=== PATIENT | female | born 1950 ===

== ENCOUNTER 2020-03-06 10:20 | Inpatient (IN) | payer OTHER ==
[2020-03-06 11:22] LABS: BASO % 0.1 % (0-2.0); EOS % 0.1 % (0-4.5); HEMATOCRIT 34.7 % (32.4-45.2); HEMOGLOBIN 10.7 GM/dL (10.7-15.3); LYMPH % 10.7 % (8-40); MCH 29.8 pg (25.7-33.7); MCHC 30.8 g/dl (32.0-36.0); MEAN CELL VOLUME 96.9 fl (80-96); MEAN PLT VOLUME 9.1 fl (7.5-11.1); MONO % 11.9 % (3.8-10.2); NEUT % 77.2 % (42.8-82.8); PLATELET COUNT 311 K/MM3 (134-434); RBC 3.58 M/mm3 (3.60-5.2); RDW 14.4 % (11.6-15.6); WHITE BLOOD COUNT 13.2 K/mm3 (4.0-10.0)
[2020-03-06 11:29] LABS: INR 1.02 (0.83-1.09); PROTHROMBIN TIME (PATIENT) 12.3 SEC (9.7-13.0)
[2020-03-06 11:43] LABS: CHLORIDE 93 mmol/L (98-107); POTASSIUM 4.8 mmol/L (3.5-5.1); SODIUM 140 mmol/L (136-145)
[2020-03-06 11:45] LABS: ALBUMIN 3.2 g/dl (3.4-5.0); CALCIUM 10.3 mg/dL (8.5-10.1); GLUCOSE,RANDOM 119 mg/dL (74-106)
[2020-03-06 11:48] LABS: CREATININE 0.6 mg/dL (0.55-1.3); SGOT/AST 28 U/L (15-37); SGPT/ALT 27 U/L (13-61)
[2020-03-06 11:50] LABS: BILIRUBIN,TOTAL 0.2 mg/dL (0.2-1); TOT PROT 8.5 g/dl (6.4-8.2)
[2020-03-06 11:51] LABS: ALK PHOS 154 U/L (45-117)
[2020-03-06 11:53] LABS: ANION GAP 2 MMOL/L (8-16); CO2 > 45 mmol/L (21-32)
[2020-03-06] MEDS ORDERED: CEFTRIAXONE 1 GM in DEXTROSE 5%-WATER - 100 ML IVPB ONE (15:55)
[2020-03-06] MEDS ORDERED: CEFTRIAXONE 1 GM/50 ML BAG ONE (16:06)
[2020-03-06] MEDS: D5-NS + 20 MEQ KCL - 20 MEQ/1,000 ML INFUS.BAG IV SCH (19:23)
[2020-03-06] MEDS: AMINO ACIDS/PROTEIN HYDROLYS 30 ML LIQUID.PKT PO SCH (19:24)
[2020-03-06] MEDS ORDERED: clonazePAM 0.25 MG ODT TABLETS GT ONE (22:10)
[2020-03-06] MEDS ORDERED: clonazePAM 0.5 MG TABLET ONE (22:13)
[2020-03-06] MEDS: ATORVASTATIN CA 40 MG TABLET (FP) GT SCH (22:13)
[2020-03-06] MEDS ORDERED: ATORVASTATIN CA 40 MG TABLET (FP) ONE (22:13)
[2020-03-06] MEDS: APIXABAN 5 MG TABLET GT SCH (22:13)
[2020-03-06] MEDS ORDERED: APIXABAN 5 MG TABLET ONE (22:13)
[2020-03-07 07:28] LABS: BASO % 0.4 % (0-2.0); EOS % 0.2 % (0-4.5); HEMATOCRIT 26.1 % (32.4-45.2); HEMOGLOBIN 8.1 GM/dL (10.7-15.3); LYMPH % 11.9 % (8-40); MCH 29.3 pg (25.7-33.7); MCHC 30.9 g/dl (32.0-36.0); MEAN PLT VOLUME 9.6 fl (7.5-11.1); MONO % 13.2 % (3.8-10.2); NEUT % 74.3 % (42.8-82.8); PLATELET COUNT 258 K/MM3 (134-434); RBC 2.75 M/mm3 (3.60-5.2); RDW 14.6 % (11.6-15.6); WHITE BLOOD COUNT 12.7 K/mm3 (4.0-10.0)
[2020-03-07 07:41] LABS: POTASSIUM 4.8 mmol/L (3.5-5.1)
[2020-03-07 07:45] LABS: CALCIUM 10.2 mg/dL (8.5-10.1)
[2020-03-07 07:46] LABS: ALBUMIN 2.8 g/dl (3.4-5.0); BLOOD UREA NITROGEN 42.2 mg/dL (7-18)
[2020-03-07 07:51] LABS: BILIRUBIN,TOTAL 0.4 mg/dL (0.2-1); TOT PROT 7.6 g/dl (6.4-8.2)
[2020-03-07] MEDS ORDERED: ISOSORBIDE MONONITRATE 10 MG TABLET PO SCH (10:00)
[2020-03-07] MEDS: CEFTRIAXONE 1 GM in DEXTROSE 5%-WATER - 50 ML IVPB SCH (12:16)
[2020-03-07] MEDS: LEVOTHYROXINE NA 112 MCG TABLET (FP) PEG SCH (12:16)
[2020-03-07] MEDS: FERROUS SO4 300 MG/5 ML ORAL SOLN UNIT DOSE CUPS GT SCH (12:17)
[2020-03-07] MEDS: APIXABAN 5 MG TABLET GT SCH ×2 (12:17→21:35)
[2020-03-07] MEDS: MULTIVIT-MINERALS ORAL LIQUID PO SCH (12:17)
[2020-03-07] MEDS: ASPIRIN 81 MG CHEWABLE TABLETS GT SCH (12:18)
[2020-03-07] MEDS: FAMOTIDINE 40 MG/5 ML ORAL SUSPENSION PEG SCH (12:18)
[2020-03-07] MEDS: AMINO ACIDS/PROTEIN HYDROLYS 30 ML LIQUID.PKT PO SCH ×2 (12:18→18:29)
[2020-03-07] MEDS ORDERED: APIXABAN 5 MG TABLET ONE (12:19)
[2020-03-07] MEDS ORDERED: CEFTRIAXONE 1 GM/50 ML BAG ONE (12:20)
[2020-03-07] MEDS: POLYETHYLENE GLYCOL 3350 119 GM BTL GT SCH (12:21)
[2020-03-07 12:49] LABS: HEMATOCRIT 24.9 % (32.4-45.2); HEMOGLOBIN 7.9 GM/dL (10.7-15.3); MCH 29.7 pg (25.7-33.7); MCHC 31.9 g/dl (32.0-36.0); MEAN CELL VOLUME 93.3 fl (80-96); MEAN PLT VOLUME 8.6 fl (7.5-11.1); PLATELET COUNT 250 K/MM3 (134-434); RBC 2.67 M/mm3 (3.60-5.2); RDW 14.3 % (11.6-15.6); WHITE BLOOD COUNT 11.7 K/mm3 (4.0-10.0)
[2020-03-07] MEDS: SILVER SULFADIAZINE 1% TOP CREAM 50 GM JAR TP SCH (13:09)
[2020-03-07 17:12] LABS: EPI CELLS >36 /uL (0-25.1); HYALINE CASTS 48 /uL (0-3.1); PH,URINE 8.5 (5.0-8.0); URINE APPEARANCE TURBID; URINE BACTERIA 7249 /uL (0-1359); URINE BILIRUBIN NEGATIVE (NEGATIVE); URINE COLOR YELLOW; URINE GLUCOSE (UA) NEGATIVE (NEGATIVE); URINE KETONE NEGATIVE (NEGATIVE); URINE LEUK ESTERASE 1+ (NEGATIVE); URINE NITRITE NEGATIVE (NEGATIVE); URINE PROTEIN 1+ (NEGATIVE); URINE RBC 23 /uL (0-23.9); URINE UROBILINOGEN 0.2 mg/dL (0.2-1.0); URINE WBC 379 /uL (0-25.8)
[2020-03-07 18:09] LABS: HEMATOCRIT 26.4 % (32.4-45.2); HEMOGLOBIN 8.6 GM/dL (10.7-15.3); MCH 30.8 pg (25.7-33.7); MCHC 32.5 g/dl (32.0-36.0); MEAN CELL VOLUME 94.6 fl (80-96); MEAN PLT VOLUME 9.4 fl (7.5-11.1); PLATELET COUNT 252 K/MM3 (134-434); RBC 2.79 M/mm3 (3.60-5.2); RDW 14.6 % (11.6-15.6)
[2020-03-07] MEDS: D5-NS + 20 MEQ KCL - 20 MEQ/1,000 ML INFUS.BAG IV SCH (18:30)
[2020-03-07] MEDS: ATORVASTATIN CA 40 MG TABLET (FP) GT SCH (21:35)
[2020-03-08] MEDS ORDERED: PT OWN MED DRAWER 7, Y5N ONE ×2 (05:56→21:39)
[2020-03-08] MEDS: LEVOTHYROXINE NA 112 MCG TABLET (FP) PEG SCH ×2 (06:05→06:10)
[2020-03-08] MEDS: AMINO ACIDS/PROTEIN HYDROLYS 30 ML LIQUID.PKT PO SCH ×2 (08:28→17:21)
[2020-03-08] MEDS: ISOSORBIDE DINITRATE 5 MG TABLET PO SCH ×2 (08:28→12:02)
[2020-03-08 08:39] LABS: BASO % 0.7 % (0-2.0); EOS % 1.3 % (0-4.5); HEMATOCRIT 24.8 % (32.4-45.2); HEMOGLOBIN 8.1 GM/dL (10.7-15.3); MCH 30.9 pg (25.7-33.7); MCHC 32.7 g/dl (32.0-36.0); MEAN CELL VOLUME 94.6 fl (80-96); MEAN PLT VOLUME 9.4 fl (7.5-11.1); MONO % 15.1 % (3.8-10.2); NEUT % 69.9 % (42.8-82.8); PLATELET COUNT 243 K/MM3 (134-434); RBC 2.62 M/mm3 (3.60-5.2); RDW 14.7 % (11.6-15.6); WHITE BLOOD COUNT 9.4 K/mm3 (4.0-10.0)
[2020-03-08 08:43] LABS: POTASSIUM 3.7 mmol/L (3.5-5.1)
[2020-03-08 08:55] LABS: ALBUMIN 2.7 g/dl (3.4-5.0); BLOOD UREA NITROGEN 38.9 mg/dL (7-18)
[2020-03-08 08:57] LABS: CREATININE 0.7 mg/dL (0.55-1.3)
[2020-03-08 08:58] LABS: BILIRUBIN,TOTAL 0.4 mg/dL (0.2-1)
[2020-03-08 08:59] LABS: TOT PROT 7.4 g/dl (6.4-8.2)
[2020-03-08] MEDS ORDERED: cefTRIAXone SODIUM 1 GM VIAL ONE (09:33)
[2020-03-08] MEDS ORDERED: DEXTROSE 5%-WATER - 50 ML IVPB ONE (09:33)
[2020-03-08] MEDS: FERROUS SO4 300 MG/5 ML ORAL SOLN UNIT DOSE CUPS GT SCH (09:41)
[2020-03-08] MEDS: APIXABAN 5 MG TABLET GT SCH ×2 (09:41→21:48)
[2020-03-08] MEDS: CEFTRIAXONE 1 GM in DEXTROSE 5%-WATER - 50 ML IVPB SCH (09:41)
[2020-03-08] MEDS: ASPIRIN 81 MG CHEWABLE TABLETS GT SCH (09:41)
[2020-03-08] MEDS: FAMOTIDINE 40 MG/5 ML ORAL SUSPENSION PEG SCH (09:42)
[2020-03-08] MEDS: MULTIVIT-MINERALS ORAL LIQUID PO SCH (09:42)
[2020-03-08] MEDS: D5-NS + 20 MEQ KCL - 20 MEQ/1,000 ML INFUS.BAG IV SCH ×2 (10:17→17:21)
[2020-03-08] MEDS ORDERED: ALBUTEROL SO4 2.5/IPRATROPIUM 0.5 INH SOL 3 ML VIAL.NEB. NEB ONE (11:49)
[2020-03-08] MEDS: ACETAMINOPHEN 650 MG/20.3 ML ORAL SOLUTION (CUPS) PO PRN (12:02)
[2020-03-08] MEDS: POLYETHYLENE GLYCOL 3350 119 GM BTL GT SCH ×2 (12:02→17:21)
[2020-03-08] MEDS: LACTOBACILLUS ACIDOPHILUS 1 TABLET GT SCH (12:16)
[2020-03-08] MEDS: clonazePAM 0.25 MG ODT TABLETS GT SCH ×2 (13:30→21:47)
[2020-03-08] MEDS ORDERED: clonazePAM 0.25 MG ODT TABLETS GT SCH (13:30)
[2020-03-08] MEDS: ASCORBIC ACID 500 MG/5 ML UNIT DOSE CUP GT SCH ×2 (13:30→21:48)
[2020-03-08] MEDS: ESCITALOPRAM OXALATE 5 MG/5 ML GT SCH (13:31)
[2020-03-08 14:27] VITALS: BMI 17.7
[2020-03-08] MEDS: SILVER SULFADIAZINE 1% TOP CREAM 50 GM JAR TP SCH (15:32)
[2020-03-08] MEDS: ALBUTEROL SO4 2.5/IPRATROPIUM 0.5 INH SOL 3 ML VIAL.NEB. NEB SCH ×2 (16:05→20:45)
[2020-03-08] MEDS: ATORVASTATIN CA 40 MG TABLET (FP) GT SCH (21:48)
[2020-03-09] MEDS: LEVOTHYROXINE NA 112 MCG TABLET (FP) PEG SCH (06:31)
[2020-03-09] MEDS: D5-NS + 20 MEQ KCL - 20 MEQ/1,000 ML INFUS.BAG IV SCH (06:33)
[2020-03-09] MEDS: ALBUTEROL SO4 2.5/IPRATROPIUM 0.5 INH SOL 3 ML VIAL.NEB. NEB SCH ×3 (07:02→15:03)
[2020-03-09 08:23] LABS: BASO % 0.4 % (0-2.0); EOS % 3.8 % (0-4.5); HEMATOCRIT 24.3 % (32.4-45.2); HEMOGLOBIN 7.6 GM/dL (10.7-15.3); LYMPH % 12.6 % (8-40); MCH 29.8 pg (25.7-33.7); MCHC 31.3 g/dl (32.0-36.0); MEAN PLT VOLUME 9.4 fl (7.5-11.1); MONO % 17.1 % (3.8-10.2); NEUT % 66.1 % (42.8-82.8); PLATELET COUNT 226 K/MM3 (134-434); RBC 2.56 M/mm3 (3.60-5.2); RDW 14.6 % (11.6-15.6); WHITE BLOOD COUNT 8.2 K/mm3 (4.0-10.0)
[2020-03-09 08:47] LABS: POTASSIUM 4.1 mmol/L (3.5-5.1)
[2020-03-09 08:51] LABS: ALBUMIN 2.4 g/dl (3.4-5.0); CALCIUM 9.2 mg/dL (8.5-10.1)
[2020-03-09 08:54] LABS: CREATININE 0.4 mg/dL (0.55-1.3)
[2020-03-09 08:56] LABS: BILIRUBIN,TOTAL 0.5 mg/dL (0.2-1); TOT PROT 6.6 g/dl (6.4-8.2)
[2020-03-09] MEDS ORDERED: cefTRIAXone SODIUM 1 GM VIAL ONE (10:10)
[2020-03-09] MEDS ORDERED: DEXTROSE 5%-WATER - 50 ML IVPB ONE (10:10)
[2020-03-09] MEDS: APIXABAN 5 MG TABLET GT SCH (10:24)
[2020-03-09] MEDS: LACTOBACILLUS ACIDOPHILUS 1 TABLET GT SCH (10:24)
[2020-03-09] MEDS: ASPIRIN 81 MG CHEWABLE TABLETS GT SCH (10:24)
[2020-03-09] MEDS: FERROUS SO4 300 MG/5 ML ORAL SOLN UNIT DOSE CUPS GT SCH (10:24)
[2020-03-09] MEDS: MULTIVIT-MINERALS ORAL LIQUID PO SCH (10:24)
[2020-03-09] MEDS: ISOSORBIDE DINITRATE 5 MG TABLET PO SCH ×2 (10:24→12:06)
[2020-03-09] MEDS: clonazePAM 0.25 MG ODT TABLETS GT SCH (10:24)
[2020-03-09] MEDS: FAMOTIDINE 40 MG/5 ML ORAL SUSPENSION PEG SCH (10:25)
[2020-03-09] MEDS: ASCORBIC ACID 500 MG/5 ML UNIT DOSE CUP GT SCH (10:25)
[2020-03-09] MEDS: CEFTRIAXONE 1 GM in DEXTROSE 5%-WATER - 50 ML IVPB SCH (10:25)
[2020-03-09] MEDS: POLYETHYLENE GLYCOL 3350 119 GM BTL GT SCH (10:25)
[2020-03-09] MEDS: SILVER SULFADIAZINE 1% TOP CREAM 50 GM JAR TP SCH (10:25)
[2020-03-09] MEDS ORDERED: PT OWN MED DRAWER 7, Y5N ONE (10:59)
[2020-03-09] MEDS ORDERED: FERRIC CARBOXYMALTOSE 750 MG in SODIUM CHLORIDE 250 ML IVPB ONE (11:00)
[2020-03-09] MEDS: ESCITALOPRAM OXALATE 5 MG/5 ML GT SCH (11:53)
[2020-03-09] MEDS: ACETAMINOPHEN 650 MG/20.3 ML ORAL SOLUTION (CUPS) PO PRN (12:06)
[2020-03-09 18:14] VITALS: BP 108/47; PULSE 81; TEMP 98.3
== END 2020-03-09 18:21 | DRG 208 ==
LOC: JER 10:20 → JERBED 15:48 → J5S 03-07 18:02
PROVIDERS: ADMIT Family Medicine; ATTEND Family Medicine
PROC: 5A1945Z Respiratory Ventilation, 24-96 Consecutive Hours (ICD-10-PCS; principal; 2020-03-06)
DX: J18.9 Pneumonia, unspecified organism (principal); G93.41 Metabolic encephalopathy; J96.01 Acute respiratory failure with hypoxia; A41.89 Other specified sepsis; R64 Cachexia; Z68.1 Body mass index [BMI] 19.9 or less, adult; E46 Unspecified protein-calorie malnutrition; J44.9 Chronic obstructive pulmonary disease, unspecified; E78.5 Hyperlipidemia, unspecified; E03.9 Hypothyroidism, unspecified; I48.91 Unspecified atrial fibrillation; I27.20 Pulmonary hypertension, unspecified; I25.10 Atherosclerotic heart disease of native coronary artery without angina pectoris; K59.00 Constipation, unspecified; D50.9 Iron deficiency anemia, unspecified; I11.0 Hypertensive heart disease with heart failure; R41.82 Altered mental status, unspecified; I50.9 Heart failure, unspecified; I77.811 Abdominal aortic ectasia; D64.9 Anemia, unspecified; N20.0 Calculus of kidney; K80.20 Calculus of gallbladder without cholecystitis without obstruction; Z86.718 Personal history of other venous thrombosis and embolism; Z99.81 Dependence on supplemental oxygen; Z88.0 Allergy status to penicillin; R77.8 Other specified abnormalities of plasma proteins; Z93.1 Gastrostomy status; Z93.0 Tracheostomy status
CPT/HCPCS: 36415; 70450-TC; 71045-TC-FY; 71250-TC; 80053; 81003; 82728; 83540; 83550; 83605; 84484; 85025; 85027; 85610; 85730; 87040; 87086; 87186; 87899; 93005; 93010; 94002; 94640; 97161-GP; 99285-25; C9803; J1439; U0003

== ENCOUNTER 2020-03-22 15:41 | Inpatient (IN) | payer OTHER ==
[2020-03-22] MEDS ORDERED: SODIUM CHLORIDE 0.9% 500 ML INFUS.BAG IV ONE (16:17)
[2020-03-22] MEDS ORDERED: PANTOPRAZOLE SODIUM 40 MG VIAL IVPUSH ONE (16:18)
[2020-03-22] MEDS ORDERED: ACETAMINOPHEN 1000 MG/100 ML VIAL (NON FORMULARY) IVPB ONE (16:31)
[2020-03-22] MEDS ORDERED: ONDANSETRON 4 MG/2 ML VIAL IVPUSH ONE (16:33)
[2020-03-22] MEDS ORDERED: ACETAMINOPHEN INJECTION 100 ML IVPB ONE (16:39)
[2020-03-22] MEDS ORDERED: PANTOPRAZOLE SODIUM 40 MG VIAL ONE (16:40)
[2020-03-22] MEDS ORDERED: CEFEPIME HCL/D5W 2 GM/50 ML BAG IVPB ONE (16:56)
[2020-03-22 17:37] LABS: BASO % 0.2 % (0-2.0); HEMATOCRIT 20.2 % (32.4-45.2); LYMPH % 3.1 % (8-40); MCH 30.2 pg (25.7-33.7); MCHC 30.7 g/dl (32.0-36.0); MEAN CELL VOLUME 98.4 fl (80-96); MEAN PLT VOLUME 8.9 fl (7.5-11.1); MONO % 11.6 % (3.8-10.2); NEUT % 85.1 % (42.8-82.8); PLATELET COUNT 246 K/MM3 (134-434); RBC 2.05 M/mm3 (3.60-5.2); RDW 15.4 % (11.6-15.6); WHITE BLOOD COUNT 24.2 K/mm3 (4.0-10.0)
[2020-03-22 17:44] LABS: INR 1.84 (0.83-1.09); PROTHROMBIN TIME (PATIENT) 21.9 SEC (9.7-13.0)
[2020-03-22 17:45] LABS: HEMOGLOBIN 6.2 GM/dL (10.7-15.3)
[2020-03-22 17:47] LABS: ACTIVATED PTT 33.6 SECONDS (25.2-36.5)
[2020-03-22 18:02] LABS: POTASSIUM 5.3 mmol/L (3.5-5.1)
[2020-03-22 18:05] LABS: CALCIUM 9.1 mg/dL (8.5-10.1)
[2020-03-22 18:06] LABS: ALBUMIN 2.4 g/dl (3.4-5.0)
[2020-03-22 18:08] LABS: CREATININE 0.6 mg/dL (0.55-1.3)
[2020-03-22 18:10] LABS: BILIRUBIN,TOTAL 0.2 mg/dL (0.2-1); TOT PROT 6.9 g/dl (6.4-8.2)
[2020-03-22 18:12] LABS: BLOOD UREA NITROGEN 68.6 mg/dL (7-18)
[2020-03-22] MEDS ORDERED: CEFEPIME 2 GM/100 ML BAG IVPB ONE (18:18)
[2020-03-22 18:33] LABS: EPI CELLS 34 /uL (0-25.1); HYALINE CASTS 11 /uL (0-3.1); URINE APPEARANCE CLOUDY; URINE BACTERIA 32 /uL (0-1359); URINE BILIRUBIN NEGATIVE (NEGATIVE); URINE COLOR YELLOW; URINE GLUCOSE (UA) NEGATIVE (NEGATIVE); URINE KETONE NEGATIVE (NEGATIVE); URINE LEUK ESTERASE TRACE (NEGATIVE); URINE NITRITE NEGATIVE (NEGATIVE); URINE PROTEIN 1+ (NEGATIVE); URINE RBC 234 /uL (0-23.9); URINE UROBILINOGEN 0.2 mg/dL (0.2-1.0); URINE WBC 32 /uL (0-25.8)
[2020-03-22 19:23] LABS: ANISOCYTOSIS 1+; MACROCYTOSIS 1+; PLATELET ESTIMATE NORMAL
[2020-03-22] MEDS ORDERED: SODIUM CHLORIDE FOR INHALATION 3 ML VIAL.NEB IH ONE (23:44)
[2020-03-22] MEDS ORDERED: ALBUTEROL SO4 2.5/IPRATROPIUM 0.5 INH SOL 3 ML VIAL.NEB. NEB STA (23:46)
[2020-03-23] MEDS ORDERED: CEFEPIME HCL/D5W 1 GM/50 ML BAG IVPB SCH (06:00)
[2020-03-23] MEDS ORDERED: CEFEPIME 1 GM/100 ML BAG IVPB ONE ×2 (06:04→18:09)
[2020-03-23 07:05] LABS: BASO % 0.2 % (0-2.0); HEMATOCRIT 26.6 % (32.4-45.2); HEMOGLOBIN 8.4 GM/dL (10.7-15.3); LYMPH % 2.4 % (8-40); MCH 29.5 pg (25.7-33.7); MCHC 31.7 g/dl (32.0-36.0); MONO % 9.5 % (3.8-10.2); NEUT % 87.9 % (42.8-82.8); PLATELET COUNT 183 K/MM3 (134-434); RBC 2.86 M/mm3 (3.60-5.2); RDW 16.4 % (11.6-15.6); WHITE BLOOD COUNT 28.7 K/mm3 (4.0-10.0)
[2020-03-23 07:25] LABS: POTASSIUM 4.6 mmol/L (3.5-5.1)
[2020-03-23 07:27] LABS: CALCIUM 8.6 mg/dL (8.5-10.1)
[2020-03-23 07:28] LABS: ALBUMIN 2.1 g/dl (3.4-5.0); BLOOD UREA NITROGEN 51.8 mg/dL (7-18)
[2020-03-23 07:31] LABS: CREATININE 0.6 mg/dL (0.55-1.3)
[2020-03-23 07:33] LABS: BILIRUBIN,TOTAL 0.7 mg/dL (0.2-1); TOT PROT 6.5 g/dl (6.4-8.2)
[2020-03-23 07:34] LABS: N-TERMINAL BNP 5201.6 pg/ml (5-125)
[2020-03-23 09:08] LABS: ANISOCYTOSIS 0; MACROCYTOSIS 0; PLATELET ESTIMATE NORMAL
[2020-03-23] MEDS ORDERED: PANTOPRAZOLE SODIUM 40 MG VIAL ONE (10:24)
[2020-03-23] MEDS: PANTOPRAZOLE SODIUM 40 MG VIAL IVPUSH SCH ×2 (10:25→22:02)
[2020-03-23] MEDS: clonazePAM 0.25 MG ODT TABLETS GT SCH ×3 (11:08→22:02)
[2020-03-23] MEDS ORDERED: PT OWN MED DRAWER 7, Y5N ONE (14:07)
[2020-03-23] MEDS: MULTIVIT-MINERALS ORAL LIQUID GT SCH (14:12)
[2020-03-23] MEDS: LACTOBACILLUS ACIDOPHILUS 1 TABLET GT SCH (14:12)
[2020-03-23] MEDS: ESCITALOPRAM OXALATE 5 MG/5 ML GT SCH (14:13)
[2020-03-23] MEDS: FERROUS SO4 300 MG/5 ML ORAL SOLN UNIT DOSE CUPS GT SCH (14:13)
[2020-03-23] MEDS: LEVOTHYROXINE NA 112 MCG TABLET (FP) PEG SCH (14:14)
[2020-03-23] MEDS: FAMOTIDINE 40 MG/5 ML ORAL SUSPENSION PEG SCH (14:14)
[2020-03-23] MEDS: CEFEPIME 1 GM in DEXTROSE 5%-WATER 100 ML IVPB SCH (18:10)
[2020-03-23] MEDS: ATORVASTATIN CA 40 MG TABLET (FP) GT SCH (22:02)
[2020-03-23] MEDS: ASCORBIC ACID 500 MG/5 ML UNIT DOSE CUP GT SCH (22:13)
[2020-03-24] MEDS ORDERED: CEFEPIME HCL 1 GM VIAL (RESTRICTED TO ID) ONE ×3 (02:03→17:42)
[2020-03-24] MEDS ORDERED: DEXTROSE 5%-WATER 100 ML IVPB ONE ×3 (02:03→17:42)
[2020-03-24] MEDS: CEFEPIME 1 GM in DEXTROSE 5%-WATER 100 ML IVPB SCH ×2 (02:07→10:18)
[2020-03-24 07:52] LABS: POTASSIUM 4.3 mmol/L (3.5-5.1)
[2020-03-24 07:58] LABS: ALBUMIN 2.3 g/dl (3.4-5.0); CALCIUM 9.6 mg/dL (8.5-10.1)
[2020-03-24 07:59] LABS: BLOOD UREA NITROGEN 37.2 mg/dL (7-18)
[2020-03-24 08:00] LABS: BASO % 0.3 % (0-2.0); HEMATOCRIT 26.3 % (32.4-45.2); HEMOGLOBIN 8.4 GM/dL (10.7-15.3); LYMPH % 5.3 % (8-40); MCH 30.2 pg (25.7-33.7); MCHC 31.9 g/dl (32.0-36.0); MEAN CELL VOLUME 94.6 fl (80-96); MEAN PLT VOLUME 9.6 fl (7.5-11.1); MONO % 11.1 % (3.8-10.2); NEUT % 83.3 % (42.8-82.8); PLATELET COUNT 195 K/MM3 (134-434); RBC 2.78 M/mm3 (3.60-5.2); RDW 16.7 % (11.6-15.6); WHITE BLOOD COUNT 18.5 K/mm3 (4.0-10.0)
[2020-03-24 08:01] LABS: CREATININE 0.5 mg/dL (0.55-1.3)
[2020-03-24 08:03] LABS: BILIRUBIN,TOTAL 0.7 mg/dL (0.2-1); TOT PROT 6.7 g/dl (6.4-8.2)
[2020-03-24] MEDS ORDERED: PT OWN MED DRAWER 7, Y5N ONE (10:07)
[2020-03-24] MEDS: LEVOTHYROXINE NA 112 MCG TABLET (FP) PEG SCH (10:16)
[2020-03-24] MEDS: LACTOBACILLUS ACIDOPHILUS 1 TABLET GT SCH (10:16)
[2020-03-24] MEDS: FERROUS SO4 300 MG/5 ML ORAL SOLN UNIT DOSE CUPS GT SCH (10:17)
[2020-03-24] MEDS: clonazePAM 0.25 MG ODT TABLETS GT SCH ×2 (10:17→22:03)
[2020-03-24] MEDS: PANTOPRAZOLE SODIUM 40 MG VIAL IVPUSH SCH ×2 (10:17→21:51)
[2020-03-24] MEDS: MULTIVIT-MINERALS ORAL LIQUID GT SCH (10:18)
[2020-03-24] MEDS: FAMOTIDINE 40 MG/5 ML ORAL SUSPENSION PEG SCH (10:18)
[2020-03-24] MEDS: ESCITALOPRAM OXALATE 5 MG/5 ML GT SCH (10:18)
[2020-03-24] MEDS: ASCORBIC ACID 500 MG/5 ML UNIT DOSE CUP GT SCH ×2 (10:21→21:51)
[2020-03-24] MEDS: ACETAMINOPHEN 650 MG/20.3 ML ORAL SOLUTION (CUPS) GT PRN (18:17)
[2020-03-24] MEDS: CEFEPIME 1 GM in DEXTROSE 5%-WATER 1 GM/100 ML BAG IVPB SCH (18:17)
[2020-03-24] MEDS: D5-1/2NS+20 MEQ KCL - 20 MEQ/1,000 ML INFUS.BAG IV SCH (18:17)
[2020-03-24] MEDS: ATORVASTATIN CA 40 MG TABLET (FP) GT SCH (21:50)
[2020-03-25] MEDS ORDERED: DEXTROSE 5%-WATER 100 ML IVPB ONE ×2 (01:13→10:33)
[2020-03-25] MEDS ORDERED: CEFEPIME HCL 1 GM VIAL (RESTRICTED TO ID) ONE ×2 (01:13→10:32)
[2020-03-25] MEDS: CEFEPIME 1 GM in DEXTROSE 5%-WATER 1 GM/100 ML BAG IVPB SCH ×2 (01:17→10:59)
[2020-03-25] MEDS: D5-1/2NS+20 MEQ KCL - 20 MEQ/1,000 ML INFUS.BAG IV SCH ×3 (05:28→18:46)
[2020-03-25 08:15] LABS: BASO % 0.4 % (0-2.0); EOS % 0.2 % (0-4.5); HEMATOCRIT 25.2 % (32.4-45.2); MCH 30.4 pg (25.7-33.7); MCHC 31.7 g/dl (32.0-36.0); MEAN PLT VOLUME 9.1 fl (7.5-11.1); MONO % 13.7 % (3.8-10.2); NEUT % 77.7 % (42.8-82.8); PLATELET COUNT 203 K/MM3 (134-434); RBC 2.63 M/mm3 (3.60-5.2); RDW 16.7 % (11.6-15.6); WHITE BLOOD COUNT 13.7 K/mm3 (4.0-10.0)
[2020-03-25 09:24] LABS: POTASSIUM 4.5 mmol/L (3.5-5.1)
[2020-03-25 09:29] LABS: ALBUMIN 2.1 g/dl (3.4-5.0); BLOOD UREA NITROGEN 30.2 mg/dL (7-18); CALCIUM 9.2 mg/dL (8.5-10.1)
[2020-03-25 09:32] LABS: CREATININE 0.5 mg/dL (0.55-1.3)
[2020-03-25 09:34] LABS: BILIRUBIN,TOTAL 0.7 mg/dL (0.2-1); TOT PROT 6.5 g/dl (6.4-8.2)
[2020-03-25] MEDS ORDERED: PT OWN MED DRAWER 7, Y5N ONE ×2 (10:32→11:31)
[2020-03-25] MEDS: FERROUS SO4 300 MG/5 ML ORAL SOLN UNIT DOSE CUPS GT SCH (11:00)
[2020-03-25] MEDS: ASCORBIC ACID 500 MG/5 ML UNIT DOSE CUP GT SCH ×2 (11:00→22:08)
[2020-03-25] MEDS: PANTOPRAZOLE SODIUM 40 MG VIAL IVPUSH SCH ×2 (11:00→22:08)
[2020-03-25] MEDS: FAMOTIDINE 40 MG/5 ML ORAL SUSPENSION PEG SCH (11:00)
[2020-03-25] MEDS: clonazePAM 0.25 MG ODT TABLETS GT SCH ×2 (11:00→22:08)
[2020-03-25] MEDS: LACTOBACILLUS ACIDOPHILUS 1 TABLET GT SCH (11:00)
[2020-03-25] MEDS: MULTIVIT-MINERALS ORAL LIQUID GT SCH (11:00)
[2020-03-25] MEDS: ESCITALOPRAM OXALATE 5 MG/5 ML GT SCH (11:00)
[2020-03-25] MEDS: LEVOTHYROXINE NA 112 MCG TABLET (FP) PEG SCH (11:01)
[2020-03-25] MEDS ORDERED: INSULIN (NOVOLOG) ASPART 100 UNITS/ML 10ML VIAL ONE (11:31)
[2020-03-25] MEDS: ATORVASTATIN CA 40 MG TABLET (FP) GT SCH (22:08)
[2020-03-26] MEDS: LEVOTHYROXINE NA 112 MCG TABLET (FP) PEG SCH (06:21)
[2020-03-26 09:26] LABS: BASO % 0.6 % (0-2.0); EOS % 0.7 % (0-4.5); HEMATOCRIT 27.8 % (32.4-45.2); HEMOGLOBIN 8.7 GM/dL (10.7-15.3); LYMPH % 7.3 % (8-40); MCH 30.2 pg (25.7-33.7); MCHC 31.1 g/dl (32.0-36.0); MEAN CELL VOLUME 97.3 fl (80-96); MEAN PLT VOLUME 8.9 fl (7.5-11.1); MONO % 13.9 % (3.8-10.2); NEUT % 77.5 % (42.8-82.8); PLATELET COUNT 209 K/MM3 (134-434); RBC 2.86 M/mm3 (3.60-5.2); RDW 16.1 % (11.6-15.6); WHITE BLOOD COUNT 13.2 K/mm3 (4.0-10.0)
[2020-03-26 09:47] LABS: POTASSIUM 4.4 mmol/L (3.5-5.1)
[2020-03-26 10:03] LABS: CALCIUM 8.5 mg/dL (8.5-10.1)
[2020-03-26 10:07] LABS: CREATININE 0.5 mg/dL (0.55-1.3)
[2020-03-26 10:08] LABS: BILIRUBIN,TOTAL 0.4 mg/dL (0.2-1); TOT PROT 6.4 g/dl (6.4-8.2)
[2020-03-26] MEDS ORDERED: PT OWN MED DRAWER 7, Y5N ONE ×2 (10:55→22:05)
[2020-03-26] MEDS: PANTOPRAZOLE SODIUM 40 MG VIAL IVPUSH SCH ×2 (10:56→22:18)
[2020-03-26] MEDS: LACTOBACILLUS ACIDOPHILUS 1 TABLET GT SCH (10:56)
[2020-03-26] MEDS: clonazePAM 0.25 MG ODT TABLETS GT SCH ×2 (10:56→22:19)
[2020-03-26] MEDS: FERROUS SO4 300 MG/5 ML ORAL SOLN UNIT DOSE CUPS GT SCH (10:56)
[2020-03-26] MEDS: FAMOTIDINE 40 MG/5 ML ORAL SUSPENSION PEG SCH (10:57)
[2020-03-26] MEDS: ASCORBIC ACID 500 MG/5 ML UNIT DOSE CUP GT SCH ×2 (10:57→22:19)
[2020-03-26] MEDS: MULTIVIT-MINERALS ORAL LIQUID GT SCH (10:57)
[2020-03-26] MEDS: ESCITALOPRAM OXALATE 5 MG/5 ML GT SCH (10:57)
[2020-03-26 11:51] LABS: ANISOCYTOSIS 1+; MACROCYTOSIS 1+; PLATELET ESTIMATE NORMAL
[2020-03-26] MEDS: ATORVASTATIN CA 40 MG TABLET (FP) GT SCH (22:19)
[2020-03-27] MEDS: ACETAMINOPHEN 650 MG/20.3 ML ORAL SOLUTION (CUPS) GT PRN ×2 (05:59→09:38)
[2020-03-27] MEDS: LEVOTHYROXINE NA 112 MCG TABLET (FP) PEG SCH (06:00)
[2020-03-27 08:59] LABS: BASO % 0.1 % (0-2.0); EOS % 0.3 % (0-4.5); HEMATOCRIT 24.6 % (32.4-45.2); HEMOGLOBIN 7.6 GM/dL (10.7-15.3); MCH 29.9 pg (25.7-33.7); MEAN CELL VOLUME 96.5 fl (80-96); MEAN PLT VOLUME 8.8 fl (7.5-11.1); MONO % 13.1 % (3.8-10.2); NEUT % 79.5 % (42.8-82.8); PLATELET COUNT 194 K/MM3 (134-434); RBC 2.55 M/mm3 (3.60-5.2); RDW 15.9 % (11.6-15.6); WHITE BLOOD COUNT 11.8 K/mm3 (4.0-10.0)
[2020-03-27] MEDS ORDERED: PT OWN MED DRAWER 7, Y5N ONE ×4 (09:09→21:25)
[2020-03-27] MEDS: MULTIVIT-MINERALS ORAL LIQUID GT SCH (09:16)
[2020-03-27] MEDS: PANTOPRAZOLE SODIUM 40 MG VIAL IVPUSH SCH ×2 (09:16→21:35)
[2020-03-27] MEDS: clonazePAM 0.25 MG ODT TABLETS GT SCH ×2 (09:16→21:35)
[2020-03-27] MEDS: LACTOBACILLUS ACIDOPHILUS 1 TABLET GT SCH (09:16)
[2020-03-27] MEDS: FERROUS SO4 300 MG/5 ML ORAL SOLN UNIT DOSE CUPS GT SCH (09:16)
[2020-03-27] MEDS: ESCITALOPRAM OXALATE 5 MG/5 ML GT SCH (09:17)
[2020-03-27] MEDS: ASCORBIC ACID 500 MG/5 ML UNIT DOSE CUP GT SCH ×2 (09:17→22:48)
[2020-03-27] MEDS: FAMOTIDINE 40 MG/5 ML ORAL SUSPENSION PEG SCH (09:17)
[2020-03-27 09:27] LABS: POTASSIUM 4.1 mmol/L (3.5-5.1)
[2020-03-27 09:29] LABS: ALBUMIN 1.9 g/dl (3.4-5.0); BLOOD UREA NITROGEN 27.4 mg/dL (7-18); CALCIUM 8.3 mg/dL (8.5-10.1)
[2020-03-27 09:32] LABS: CREATININE 0.5 mg/dL (0.55-1.3)
[2020-03-27 09:34] LABS: BILIRUBIN,TOTAL 0.4 mg/dL (0.2-1); TOT PROT 5.9 g/dl (6.4-8.2)
[2020-03-27] MEDS ORDERED: cefTAZidime PENTAHYDRATE 1 GM/50ML PRE-DOCKED (RESTRICTED TO ID) IVPB SCH (11:15)
[2020-03-27] MEDS: CEFTAZIDIME PENTAHYDRATE 2 GM in DEXTROSE 5%-WATER - 100 ML IVPB SCH ×2 (13:15→19:59)
[2020-03-27 15:38] LABS: EPI CELLS 22 /uL (0-25.1); HYALINE CASTS 2 /uL (0-3.1); URINE APPEARANCE CLEAR; URINE BACTERIA 101 /uL (0-1359); URINE BILIRUBIN NEGATIVE (NEGATIVE); URINE COLOR YELLOW; URINE GLUCOSE (UA) NEGATIVE (NEGATIVE); URINE KETONE NEGATIVE (NEGATIVE); URINE LEUK ESTERASE NEGATIVE (NEGATIVE); URINE NITRITE NEGATIVE (NEGATIVE); URINE PROTEIN 2+ (NEGATIVE); URINE RBC 66 /uL (0-23.9); URINE WBC 23 /uL (0-25.8)
[2020-03-27] MEDS ORDERED: SODIUM PHOSPHATE/NA BIPHOS 133 ML ENEMA RC ONE (20:00)
[2020-03-27] MEDS: ATORVASTATIN CA 40 MG TABLET (FP) GT SCH (21:35)
[2020-03-28] MEDS ORDERED: PT OWN MED DRAWER 7, Y5N ONE ×3 (03:12→18:02)
[2020-03-28] MEDS: CEFTAZIDIME PENTAHYDRATE 2 GM in DEXTROSE 5%-WATER - 100 ML IVPB SCH ×3 (03:16→18:11)
[2020-03-28] MEDS: LEVOTHYROXINE NA 112 MCG TABLET (FP) PEG SCH (06:13)
[2020-03-28 08:25] LABS: BASO % 0.3 % (0-2.0); EOS % 0.6 % (0-4.5); HEMATOCRIT 29.6 % (32.4-45.2); HEMOGLOBIN 9.5 GM/dL (10.7-15.3); LYMPH % 9.5 % (8-40); MCH 30.6 pg (25.7-33.7); MEAN CELL VOLUME 95.4 fl (80-96); MEAN PLT VOLUME 8.9 fl (7.5-11.1); MONO % 9.6 % (3.8-10.2); PLATELET COUNT 210 K/MM3 (134-434); RBC 3.11 M/mm3 (3.60-5.2); RDW 16.7 % (11.6-15.6); WHITE BLOOD COUNT 12.8 K/mm3 (4.0-10.0)
[2020-03-28 08:53] LABS: POTASSIUM 4.4 mmol/L (3.5-5.1)
[2020-03-28 09:02] LABS: CALCIUM 8.9 mg/dL (8.5-10.1)
[2020-03-28 09:03] LABS: BLOOD UREA NITROGEN 22.8 mg/dL (7-18)
[2020-03-28 09:05] LABS: CREATININE 0.5 mg/dL (0.55-1.3)
[2020-03-28 09:07] LABS: BILIRUBIN,TOTAL 0.9 mg/dL (0.2-1); TOT PROT 6.4 g/dl (6.4-8.2)
[2020-03-28] MEDS: MULTIVIT-MINERALS ORAL LIQUID GT SCH (09:48)
[2020-03-28] MEDS: FERROUS SO4 300 MG/5 ML ORAL SOLN UNIT DOSE CUPS GT SCH (09:48)
[2020-03-28] MEDS: ESCITALOPRAM OXALATE 5 MG/5 ML GT SCH (09:48)
[2020-03-28] MEDS: FAMOTIDINE 40 MG/5 ML ORAL SUSPENSION PEG SCH (09:48)
[2020-03-28] MEDS: LACTOBACILLUS ACIDOPHILUS 1 TABLET GT SCH (09:48)
[2020-03-28] MEDS: clonazePAM 0.25 MG ODT TABLETS GT SCH ×2 (09:48→22:44)
[2020-03-28] MEDS: PANTOPRAZOLE SODIUM 40 MG VIAL IVPUSH SCH ×2 (09:49→22:44)
[2020-03-28] MEDS: ASCORBIC ACID 500 MG/5 ML UNIT DOSE CUP GT SCH ×2 (09:49→22:44)
[2020-03-28] MEDS ORDERED: PNEUMOC 13-VAL CONJ-DIP CRM/PF 0.5 ML DISP.SYRIN IM ONE (10:00)
[2020-03-28] MEDS ORDERED: INSULIN (NOVOLOG) ASPART 100 UNITS/ML 10ML VIAL ONE (11:29)
[2020-03-28] MEDS: ALBUTEROL SO4 2.5/IPRATROPIUM 0.5 INH SOL 3 ML VIAL.NEB. NEB SCH ×3 (11:54→20:03)
[2020-03-28] MEDS: ATORVASTATIN CA 40 MG TABLET (FP) GT SCH (22:44)
[2020-03-29] MEDS ORDERED: PT OWN MED DRAWER 7, Y5N ONE ×4 (02:06→21:10)
[2020-03-29] MEDS: CEFTAZIDIME PENTAHYDRATE 2 GM in DEXTROSE 5%-WATER - 100 ML IVPB SCH ×3 (02:08→17:18)
[2020-03-29] MEDS: LEVOTHYROXINE NA 112 MCG TABLET (FP) PEG SCH (06:10)
[2020-03-29] MEDS: clonazePAM 0.25 MG ODT TABLETS GT SCH ×2 (09:57→21:07)
[2020-03-29] MEDS: LACTOBACILLUS ACIDOPHILUS 1 TABLET GT SCH (09:57)
[2020-03-29] MEDS: FERROUS SO4 300 MG/5 ML ORAL SOLN UNIT DOSE CUPS GT SCH (09:57)
[2020-03-29] MEDS: MULTIVIT-MINERALS ORAL LIQUID GT SCH (09:58)
[2020-03-29] MEDS: ESCITALOPRAM OXALATE 5 MG/5 ML GT SCH (09:59)
[2020-03-29] MEDS: ASCORBIC ACID 500 MG/5 ML UNIT DOSE CUP GT SCH ×2 (10:00→21:10)
[2020-03-29] MEDS: FAMOTIDINE 40 MG/5 ML ORAL SUSPENSION PEG SCH (10:00)
[2020-03-29] MEDS: PANTOPRAZOLE SODIUM 40 MG VIAL IVPUSH SCH ×2 (11:35→21:07)
[2020-03-29] MEDS: SUCRALFATE 1 GM/10 ML UNIT DOSE CUPS PEG SCH ×2 (11:35→21:07)
[2020-03-29 14:30] LABS: BASO % 0.3 % (0-2.0); EOS % 0.9 % (0-4.5); HEMATOCRIT 31.9 % (32.4-45.2); HEMOGLOBIN 9.9 GM/dL (10.7-15.3); LYMPH % 8.8 % (8-40); MCH 29.5 pg (25.7-33.7); MEAN CELL VOLUME 95.1 fl (80-96); MEAN PLT VOLUME 8.6 fl (7.5-11.1); MONO % 11.2 % (3.8-10.2); NEUT % 78.8 % (42.8-82.8); PLATELET COUNT 272 K/MM3 (134-434); RBC 3.35 M/mm3 (3.60-5.2); RDW 16.6 % (11.6-15.6); WHITE BLOOD COUNT 13.3 K/mm3 (4.0-10.0)
[2020-03-29 14:45] LABS: POTASSIUM 3.9 mmol/L (3.5-5.1)
[2020-03-29 14:48] LABS: BLOOD UREA NITROGEN 15.3 mg/dL (7-18); CALCIUM 8.2 mg/dL (8.5-10.1)
[2020-03-29 14:49] LABS: ALBUMIN 1.9 g/dl (3.4-5.0)
[2020-03-29 14:51] LABS: CREATININE 0.5 mg/dL (0.55-1.3)
[2020-03-29 14:53] LABS: BILIRUBIN,TOTAL 0.3 mg/dL (0.2-1); TOT PROT 6.7 g/dl (6.4-8.2)
[2020-03-29] MEDS: ALBUTEROL SO4 2.5/IPRATROPIUM 0.5 INH SOL 3 ML VIAL.NEB. NEB SCH (20:40)
[2020-03-29] MEDS: ATORVASTATIN CA 40 MG TABLET (FP) GT SCH (21:08)
[2020-03-30] MEDS: CEFTAZIDIME PENTAHYDRATE 2 GM in DEXTROSE 5%-WATER - 100 ML IVPB SCH ×3 (01:16→17:02)
[2020-03-30] MEDS: LEVOTHYROXINE NA 112 MCG TABLET (FP) PEG SCH (06:08)
[2020-03-30] MEDS: ALBUTEROL SO4 2.5/IPRATROPIUM 0.5 INH SOL 3 ML VIAL.NEB. NEB SCH ×4 (08:15→20:20)
[2020-03-30 08:55] LABS: BASO % 0.3 % (0-2.0); EOS % 1.9 % (0-4.5); HEMATOCRIT 30.8 % (32.4-45.2); HEMOGLOBIN 9.8 GM/dL (10.7-15.3); LYMPH % 8.2 % (8-40); MCH 30.7 pg (25.7-33.7); MCHC 31.7 g/dl (32.0-36.0); MEAN PLT VOLUME 8.6 fl (7.5-11.1); MONO % 10.3 % (3.8-10.2); NEUT % 79.3 % (42.8-82.8); PLATELET COUNT 256 K/MM3 (134-434); RBC 3.17 M/mm3 (3.60-5.2); RDW 16.2 % (11.6-15.6); WHITE BLOOD COUNT 13.7 K/mm3 (4.0-10.0)
[2020-03-30 09:17] LABS: POTASSIUM 3.9 mmol/L (3.5-5.1)
[2020-03-30 10:31] LABS: BLOOD UREA NITROGEN 13.6 mg/dL (7-18); CALCIUM 8.1 mg/dL (8.5-10.1)
[2020-03-30 10:32] LABS: ALBUMIN 1.9 g/dl (3.4-5.0)
[2020-03-30 10:35] LABS: CREATININE 0.3 mg/dL (0.55-1.3)
[2020-03-30 10:36] LABS: BILIRUBIN,TOTAL 1.2 mg/dL (0.2-1); TOT PROT 6.4 g/dl (6.4-8.2)
[2020-03-30] MEDS ORDERED: PT OWN MED DRAWER 7, Y5N ONE ×5 (10:38→21:24)
[2020-03-30] MEDS: LACTOBACILLUS ACIDOPHILUS 1 TABLET GT SCH (10:40)
[2020-03-30] MEDS: clonazePAM 0.25 MG ODT TABLETS GT SCH ×2 (10:40→21:25)
[2020-03-30] MEDS: MULTIVIT-MINERALS ORAL LIQUID GT SCH (10:40)
[2020-03-30] MEDS: SUCRALFATE 1 GM/10 ML UNIT DOSE CUPS PEG SCH ×2 (10:40→21:29)
[2020-03-30] MEDS: FERROUS SO4 300 MG/5 ML ORAL SOLN UNIT DOSE CUPS GT SCH (10:40)
[2020-03-30] MEDS: PANTOPRAZOLE SODIUM 40 MG VIAL IVPUSH SCH ×2 (10:41→21:29)
[2020-03-30] MEDS: ESCITALOPRAM OXALATE 5 MG/5 ML GT SCH (10:44)
[2020-03-30] MEDS: FAMOTIDINE 40 MG/5 ML ORAL SUSPENSION PEG SCH (10:44)
[2020-03-30] MEDS: ASCORBIC ACID 500 MG/5 ML UNIT DOSE CUP GT SCH ×2 (10:46→21:25)
[2020-03-30] MEDS: APIXABAN 5 MG TABLET GT SCH (21:25)
[2020-03-30] MEDS: ATORVASTATIN CA 40 MG TABLET (FP) GT SCH (21:25)
[2020-03-31] MEDS: CEFTAZIDIME PENTAHYDRATE 2 GM in DEXTROSE 5%-WATER - 100 ML IVPB SCH ×3 (01:45→17:09)
[2020-03-31] MEDS: LEVOTHYROXINE NA 112 MCG TABLET (FP) PEG SCH (06:06)
[2020-03-31] MEDS: ALBUTEROL SO4 2.5/IPRATROPIUM 0.5 INH SOL 3 ML VIAL.NEB. NEB SCH ×4 (08:15→20:45)
[2020-03-31 08:56] LABS: BASO % 0.5 % (0-2.0); EOS % 2.2 % (0-4.5); HEMATOCRIT 30.4 % (32.4-45.2); HEMOGLOBIN 9.5 GM/dL (10.7-15.3); LYMPH % 8.3 % (8-40); MCH 30.5 pg (25.7-33.7); MCHC 31.3 g/dl (32.0-36.0); MEAN CELL VOLUME 97.2 fl (80-96); MEAN PLT VOLUME 8.8 fl (7.5-11.1); MONO % 10.6 % (3.8-10.2); NEUT % 78.4 % (42.8-82.8); PLATELET COUNT 252 K/MM3 (134-434); RBC 3.12 M/mm3 (3.60-5.2); RDW 16.3 % (11.6-15.6); WHITE BLOOD COUNT 14.6 K/mm3 (4.0-10.0)
[2020-03-31 09:18] LABS: CHLORIDE 92 mmol/L (98-107); SODIUM 137 mmol/L (136-145)
[2020-03-31 09:21] LABS: ALBUMIN 1.8 g/dl (3.4-5.0); CALCIUM 7.9 mg/dL (8.5-10.1)
[2020-03-31 09:22] LABS: BLOOD UREA NITROGEN 12.4 mg/dL (7-18); GLUCOSE,RANDOM 157 mg/dL (74-106)
[2020-03-31 09:25] LABS: CREATININE 0.4 mg/dL (0.55-1.3); SGPT/ALT 11 U/L (13-61)
[2020-03-31 09:26] LABS: BILIRUBIN,TOTAL 0.2 mg/dL (0.2-1); TOT PROT 6.2 g/dl (6.4-8.2)
[2020-03-31 09:27] LABS: ALK PHOS 119 U/L (45-117); SGOT/AST 14 U/L (15-37)
[2020-03-31 09:34] LABS: ANION GAP 0 MMOL/L (8-16); CO2 > 45 mmol/L (21-32)
[2020-03-31] MEDS ORDERED: FERRIC CARBOXYMALTOSE 750 MG in SODIUM CHLORIDE 250 ML IVPB ONE (10:26)
[2020-03-31] MEDS: clonazePAM 0.25 MG ODT TABLETS GT SCH (10:50)
[2020-03-31] MEDS ORDERED: PT OWN MED DRAWER 7, Y5N ONE ×3 (10:57→21:16)
[2020-03-31] MEDS: LACTOBACILLUS ACIDOPHILUS 1 TABLET GT SCH (11:06)
[2020-03-31] MEDS: SUCRALFATE 1 GM/10 ML UNIT DOSE CUPS PEG SCH ×2 (11:06→21:18)
[2020-03-31] MEDS: FERROUS SO4 300 MG/5 ML ORAL SOLN UNIT DOSE CUPS GT SCH (11:06)
[2020-03-31] MEDS: MULTIVIT-MINERALS ORAL LIQUID GT SCH (11:06)
[2020-03-31] MEDS: APIXABAN 5 MG TABLET GT SCH ×2 (11:07→21:18)
[2020-03-31] MEDS: ESCITALOPRAM OXALATE 5 MG/5 ML GT SCH (11:07)
[2020-03-31] MEDS: FAMOTIDINE 40 MG/5 ML ORAL SUSPENSION PEG SCH (11:08)
[2020-03-31] MEDS: ASCORBIC ACID 500 MG/5 ML UNIT DOSE CUP GT SCH ×2 (11:08→21:19)
[2020-03-31] MEDS: PANTOPRAZOLE SODIUM 40 MG VIAL IVPUSH SCH ×2 (11:10→21:18)
[2020-03-31] MEDS: ATORVASTATIN CA 40 MG TABLET (FP) GT SCH (21:19)
[2020-03-31] MEDS ORDERED: SODIUM CHLORIDE 500 ML IV STA (22:00)
[2020-04-01] MEDS ORDERED: PT OWN MED DRAWER 7, Y5N ONE ×4 (01:54→22:12)
[2020-04-01] MEDS: CEFTAZIDIME PENTAHYDRATE 2 GM in DEXTROSE 5%-WATER - 100 ML IVPB SCH ×2 (02:20→12:20)
[2020-04-01] MEDS: LEVOTHYROXINE NA 112 MCG TABLET (FP) PEG SCH (06:43)
[2020-04-01 08:34] LABS: BASO % 0.3 % (0-2.0); EOS % 1.1 % (0-4.5); HEMATOCRIT 30.2 % (32.4-45.2); HEMOGLOBIN 9.4 GM/dL (10.7-15.3); LYMPH % 5.2 % (8-40); MCH 29.9 pg (25.7-33.7); MEAN CELL VOLUME 96.5 fl (80-96); MEAN PLT VOLUME 8.5 fl (7.5-11.1); MONO % 10.1 % (3.8-10.2); NEUT % 83.3 % (42.8-82.8); PLATELET COUNT 263 K/MM3 (134-434); RBC 3.13 M/mm3 (3.60-5.2); RDW 15.8 % (11.6-15.6); WHITE BLOOD COUNT 13.2 K/mm3 (4.0-10.0)
[2020-04-01 09:01] LABS: ALBUMIN 1.7 g/dl (3.4-5.0); CALCIUM 8.1 mg/dL (8.5-10.1)
[2020-04-01 09:02] LABS: BLOOD UREA NITROGEN 11.9 mg/dL (7-18)
[2020-04-01 09:05] LABS: BILIRUBIN,TOTAL 0.2 mg/dL (0.2-1); CREATININE 0.3 mg/dL (0.55-1.3)
[2020-04-01 09:06] LABS: TOT PROT 6.3 g/dl (6.4-8.2)
[2020-04-01] MEDS: ESCITALOPRAM OXALATE 5 MG/5 ML GT SCH (12:15)
[2020-04-01] MEDS: SUCRALFATE 1 GM/10 ML UNIT DOSE CUPS PEG SCH ×2 (12:15→22:17)
[2020-04-01] MEDS: FERROUS SO4 300 MG/5 ML ORAL SOLN UNIT DOSE CUPS GT SCH (12:15)
[2020-04-01] MEDS: LACTOBACILLUS ACIDOPHILUS 1 TABLET GT SCH (12:16)
[2020-04-01] MEDS: APIXABAN 5 MG TABLET GT SCH ×2 (12:16→22:17)
[2020-04-01] MEDS: ASCORBIC ACID 500 MG/5 ML UNIT DOSE CUP GT SCH ×2 (12:16→22:17)
[2020-04-01] MEDS: PANTOPRAZOLE SODIUM 40 MG VIAL IVPUSH SCH ×2 (12:16→22:17)
[2020-04-01] MEDS: MULTIVIT-MINERALS ORAL LIQUID GT SCH (12:16)
[2020-04-01] MEDS ORDERED: SODIUM CHLORIDE 500 ML IV STA (12:41)
[2020-04-01] MEDS: FAMOTIDINE 40 MG/5 ML ORAL SUSPENSION PEG SCH (12:47)
[2020-04-01] MEDS: POLYETHYLENE GLYCOL 3350 119 GM BTL PO SCH (14:59)
[2020-04-01] MEDS: ALBUTEROL SO4 2.5/IPRATROPIUM 0.5 INH SOL 3 ML VIAL.NEB. NEB SCH ×2 (15:20→20:30)
[2020-04-01] MEDS ORDERED: CEFTOLOZANE/TAZOBACTAM (ZERBAXA) 1.5 GM/11.4 ML VIAL IV SCH (18:00)
[2020-04-01] MEDS: CEFTOLOZANE/TAZOBACTAM 3 GM in DEXTROSE 5%-WATER - 100 ML IVPB SCH (19:01)
[2020-04-01] MEDS: VANCOMYCIN 750 MG in DEXTROSE 5%-WATER - 250 ML IVPB SCH (20:19)
[2020-04-01] MEDS: ATORVASTATIN CA 40 MG TABLET (FP) GT SCH (22:17)
[2020-04-02] MEDS: CEFTOLOZANE/TAZOBACTAM 3 GM in DEXTROSE 5%-WATER - 100 ML IVPB SCH ×3 (02:54→19:39)
[2020-04-02] MEDS ORDERED: PT OWN MED DRAWER 7, Y5N ONE ×6 (06:21→22:26)
[2020-04-02] MEDS: LEVOTHYROXINE NA 112 MCG TABLET (FP) PEG SCH (06:23)
[2020-04-02] MEDS: VANCOMYCIN 750 MG in DEXTROSE 5%-WATER - 250 ML IVPB SCH ×2 (06:52→17:50)
[2020-04-02] MEDS: ALBUTEROL SO4 2.5/IPRATROPIUM 0.5 INH SOL 3 ML VIAL.NEB. NEB SCH ×4 (09:08→20:30)
[2020-04-02] MEDS: FERROUS SO4 300 MG/5 ML ORAL SOLN UNIT DOSE CUPS GT SCH (11:13)
[2020-04-02] MEDS: MULTIVIT-MINERALS ORAL LIQUID GT SCH (11:13)
[2020-04-02] MEDS: SUCRALFATE 1 GM/10 ML UNIT DOSE CUPS PEG SCH ×2 (11:13→22:45)
[2020-04-02] MEDS: LACTOBACILLUS ACIDOPHILUS 1 TABLET GT SCH (11:14)
[2020-04-02] MEDS: PANTOPRAZOLE SODIUM 40 MG VIAL IVPUSH SCH ×2 (11:14→22:46)
[2020-04-02] MEDS: APIXABAN 5 MG TABLET GT SCH ×2 (11:14→22:45)
[2020-04-02] MEDS: POLYETHYLENE GLYCOL 3350 119 GM BTL PO SCH (11:17)
[2020-04-02 13:05] LABS: BASO % 0.4 % (0-2.0); HEMATOCRIT 30.2 % (32.4-45.2); HEMOGLOBIN 9.4 GM/dL (10.7-15.3); LYMPH % 4.2 % (8-40); MCH 30.6 pg (25.7-33.7); MCHC 31.1 g/dl (32.0-36.0); MEAN CELL VOLUME 98.4 fl (80-96); MEAN PLT VOLUME 8.4 fl (7.5-11.1); MONO % 11.4 % (3.8-10.2); PLATELET COUNT 292 K/MM3 (134-434); RBC 3.07 M/mm3 (3.60-5.2); RDW 16.6 % (11.6-15.6); WHITE BLOOD COUNT 16.3 K/mm3 (4.0-10.0)
[2020-04-02 13:57] LABS: POTASSIUM 4.6 mmol/L (3.5-5.1)
[2020-04-02 14:01] LABS: ALBUMIN 1.9 g/dl (3.4-5.0); CALCIUM 7.9 mg/dL (8.5-10.1)
[2020-04-02 14:02] LABS: BLOOD UREA NITROGEN 15.6 mg/dL (7-18)
[2020-04-02 14:05] LABS: CREATININE 0.4 mg/dL (0.55-1.3)
[2020-04-02 14:06] LABS: BILIRUBIN,TOTAL 0.3 mg/dL (0.2-1); TOT PROT 6.6 g/dl (6.4-8.2)
[2020-04-02] MEDS: ESCITALOPRAM OXALATE 5 MG/5 ML GT SCH (14:22)
[2020-04-02] MEDS: FAMOTIDINE 40 MG/5 ML ORAL SUSPENSION PEG SCH (14:22)
[2020-04-02] MEDS: ASCORBIC ACID 500 MG/5 ML UNIT DOSE CUP GT SCH ×2 (14:23→22:45)
[2020-04-02] MEDS: ATORVASTATIN CA 40 MG TABLET (FP) GT SCH (22:45)
[2020-04-02] MEDS: ACETAMINOPHEN 650 MG/20.3 ML ORAL SOLUTION (CUPS) GT PRN (22:53)
[2020-04-03] MEDS: CEFTOLOZANE/TAZOBACTAM 3 GM in DEXTROSE 5%-WATER - 100 ML IVPB SCH ×3 (01:46→17:46)
[2020-04-03] MEDS: VANCOMYCIN 750 MG in DEXTROSE 5%-WATER - 250 ML IVPB SCH ×2 (04:25→19:44)
[2020-04-03] MEDS: LEVOTHYROXINE NA 112 MCG TABLET (FP) PEG SCH (06:00)
[2020-04-03] MEDS ORDERED: PT OWN MED DRAWER 7, Y5N ONE ×4 (06:41→22:26)
[2020-04-03 08:45] LABS: BASO % 0.4 % (0-2.0); EOS % 0.6 % (0-4.5); HEMATOCRIT 28.6 % (32.4-45.2); HEMOGLOBIN 8.9 GM/dL (10.7-15.3); LYMPH % 4.6 % (8-40); MCH 30.6 pg (25.7-33.7); MCHC 31.1 g/dl (32.0-36.0); MEAN CELL VOLUME 98.1 fl (80-96); MEAN PLT VOLUME 8.7 fl (7.5-11.1); MONO % 13.2 % (3.8-10.2); NEUT % 81.2 % (42.8-82.8); PLATELET COUNT 289 K/MM3 (134-434); RBC 2.91 M/mm3 (3.60-5.2); RDW 16.3 % (11.6-15.6)
[2020-04-03] MEDS: ALBUTEROL SO4 2.5/IPRATROPIUM 0.5 INH SOL 3 ML VIAL.NEB. NEB SCH ×4 (08:45→20:38)
[2020-04-03 10:32] LABS: POTASSIUM 4.8 mmol/L (3.5-5.1)
[2020-04-03 10:38] LABS: BLOOD UREA NITROGEN 17.8 mg/dL (7-18); CALCIUM 7.9 mg/dL (8.5-10.1)
[2020-04-03 10:40] LABS: ALBUMIN 1.7 g/dl (3.4-5.0)
[2020-04-03 10:43] LABS: CREATININE 0.4 mg/dL (0.55-1.3)
[2020-04-03 10:44] LABS: TOT PROT 6.5 g/dl (6.4-8.2)
[2020-04-03] MEDS: POLYETHYLENE GLYCOL 3350 119 GM BTL PO SCH (10:56)
[2020-04-03] MEDS: PANTOPRAZOLE SODIUM 40 MG VIAL IVPUSH SCH ×2 (10:57→22:28)
[2020-04-03] MEDS: ESCITALOPRAM OXALATE 5 MG/5 ML GT SCH (10:57)
[2020-04-03] MEDS: FERROUS SO4 300 MG/5 ML ORAL SOLN UNIT DOSE CUPS GT SCH (10:58)
[2020-04-03] MEDS: SUCRALFATE 1 GM/10 ML UNIT DOSE CUPS PEG SCH ×2 (10:58→22:27)
[2020-04-03] MEDS: ASCORBIC ACID 500 MG/5 ML UNIT DOSE CUP GT SCH ×2 (10:58→22:28)
[2020-04-03] MEDS: MULTIVIT-MINERALS ORAL LIQUID GT SCH (10:58)
[2020-04-03] MEDS: FAMOTIDINE 40 MG/5 ML ORAL SUSPENSION PEG SCH (10:59)
[2020-04-03] MEDS: APIXABAN 5 MG TABLET GT SCH ×2 (10:59→22:28)
[2020-04-03] MEDS: LACTOBACILLUS ACIDOPHILUS 1 TABLET GT SCH (10:59)
[2020-04-03] MEDS: ATORVASTATIN CA 40 MG TABLET (FP) GT SCH (22:28)
[2020-04-04] MEDS: ALBUTEROL SO4 2.5/IPRATROPIUM 0.5 INH SOL 3 ML VIAL.NEB. NEB SCH ×5 (00:47→19:47)
[2020-04-04] MEDS ORDERED: PT OWN MED DRAWER 7, Y5N ONE ×4 (01:17→10:39)
[2020-04-04] MEDS: CEFTOLOZANE/TAZOBACTAM 3 GM in DEXTROSE 5%-WATER - 100 ML IVPB SCH ×3 (01:41→18:20)
[2020-04-04] MEDS: ACETAMINOPHEN 650 MG/20.3 ML ORAL SOLUTION (CUPS) GT PRN (02:25)
[2020-04-04] MEDS: LEVOTHYROXINE NA 112 MCG TABLET (FP) PEG SCH (06:08)
[2020-04-04] MEDS: VANCOMYCIN 750 MG in DEXTROSE 5%-WATER - 250 ML IVPB SCH (06:08)
[2020-04-04 09:12] LABS: BASO % 0.1 % (0-2.0); EOS % 0.2 % (0-4.5); HEMATOCRIT 26.1 % (32.4-45.2); HEMOGLOBIN 8.2 GM/dL (10.7-15.3); MCHC 31.5 g/dl (32.0-36.0); MEAN CELL VOLUME 98.5 fl (80-96); MEAN PLT VOLUME 8.7 fl (7.5-11.1); MONO % 13.2 % (3.8-10.2); NEUT % 82.5 % (42.8-82.8); PLATELET COUNT 276 K/MM3 (134-434); RBC 2.65 M/mm3 (3.60-5.2); RDW 16.1 % (11.6-15.6); WHITE BLOOD COUNT 20.2 K/mm3 (4.0-10.0)
[2020-04-04 09:41] LABS: POTASSIUM 4.7 mmol/L (3.5-5.1)
[2020-04-04 09:49] LABS: ALBUMIN 1.6 g/dl (3.4-5.0); BLOOD UREA NITROGEN 20.2 mg/dL (7-18); CALCIUM 8.1 mg/dL (8.5-10.1)
[2020-04-04 09:53] LABS: CREATININE 0.5 mg/dL (0.55-1.3)
[2020-04-04 09:55] LABS: BILIRUBIN,TOTAL 0.3 mg/dL (0.2-1)
[2020-04-04 10:30] LABS: ANISOCYTOSIS 0; MACROCYTOSIS 0; PLATELET ESTIMATE NORMAL
[2020-04-04] MEDS: FAMOTIDINE 40 MG/5 ML ORAL SUSPENSION PEG SCH (10:36)
[2020-04-04] MEDS: PANTOPRAZOLE SODIUM 40 MG VIAL IVPUSH SCH ×2 (10:40→23:35)
[2020-04-04] MEDS: ASCORBIC ACID 500 MG/5 ML UNIT DOSE CUP GT SCH ×2 (10:40→23:34)
[2020-04-04] MEDS: SUCRALFATE 1 GM/10 ML UNIT DOSE CUPS PEG SCH ×2 (10:42→23:34)
[2020-04-04] MEDS: MULTIVIT-MINERALS ORAL LIQUID GT SCH (10:42)
[2020-04-04] MEDS: LACTOBACILLUS ACIDOPHILUS 1 TABLET GT SCH (10:42)
[2020-04-04] MEDS: APIXABAN 5 MG TABLET GT SCH ×2 (10:43→23:35)
[2020-04-04] MEDS: FERROUS SO4 300 MG/5 ML ORAL SOLN UNIT DOSE CUPS GT SCH (10:43)
[2020-04-04] MEDS: POLYETHYLENE GLYCOL 3350 119 GM BTL PO SCH (11:02)
[2020-04-04] MEDS: ESCITALOPRAM OXALATE 5 MG/5 ML GT SCH (11:03)
[2020-04-04] MEDS: ATORVASTATIN CA 40 MG TABLET (FP) GT SCH (23:35)
[2020-04-05] MEDS: CEFTOLOZANE/TAZOBACTAM 3 GM in DEXTROSE 5%-WATER - 100 ML IVPB SCH ×3 (02:04→17:11)
[2020-04-05] MEDS: LEVOTHYROXINE NA 112 MCG TABLET (FP) PEG SCH (06:34)
[2020-04-05] MEDS: ALBUTEROL SO4 2.5/IPRATROPIUM 0.5 INH SOL 3 ML VIAL.NEB. NEB SCH ×3 (07:40→21:00)
[2020-04-05 08:47] LABS: BASO % 0.4 % (0-2.0); EOS % 0.1 % (0-4.5); HEMATOCRIT 27.9 % (32.4-45.2); HEMOGLOBIN 8.6 GM/dL (10.7-15.3); LYMPH % 2.8 % (8-40); MCH 30.7 pg (25.7-33.7); MEAN CELL VOLUME 99.1 fl (80-96); MONO % 13.5 % (3.8-10.2); NEUT % 83.2 % (42.8-82.8); PLATELET COUNT 299 K/MM3 (134-434); RBC 2.81 M/mm3 (3.60-5.2); RDW 16.5 % (11.6-15.6); WHITE BLOOD COUNT 23.2 K/mm3 (4.0-10.0)
[2020-04-05 09:22] LABS: POTASSIUM 5.2 mmol/L (3.5-5.1)
[2020-04-05 09:26] LABS: ALBUMIN 1.6 g/dl (3.4-5.0); CALCIUM 8.2 mg/dL (8.5-10.1)
[2020-04-05 09:28] LABS: CREATININE 0.6 mg/dL (0.55-1.3)
[2020-04-05 09:29] LABS: BILIRUBIN,TOTAL 0.5 mg/dL (0.2-1); TOT PROT 6.4 g/dl (6.4-8.2)
[2020-04-05] MEDS ORDERED: PT OWN MED DRAWER 7, Y5N ONE ×4 (10:48→20:04)
[2020-04-05] MEDS: FAMOTIDINE 40 MG/5 ML ORAL SUSPENSION PEG SCH (10:58)
[2020-04-05] MEDS: SUCRALFATE 1 GM/10 ML UNIT DOSE CUPS PEG SCH ×2 (10:59→22:27)
[2020-04-05] MEDS: FERROUS SO4 300 MG/5 ML ORAL SOLN UNIT DOSE CUPS GT SCH (10:59)
[2020-04-05] MEDS: APIXABAN 5 MG TABLET GT SCH ×2 (10:59→22:27)
[2020-04-05] MEDS: MULTIVIT-MINERALS ORAL LIQUID GT SCH (10:59)
[2020-04-05] MEDS: LACTOBACILLUS ACIDOPHILUS 1 TABLET GT SCH (10:59)
[2020-04-05] MEDS: ASCORBIC ACID 500 MG/5 ML UNIT DOSE CUP GT SCH ×2 (10:59→22:30)
[2020-04-05] MEDS: ESCITALOPRAM OXALATE 5 MG/5 ML GT SCH (10:59)
[2020-04-05] MEDS: POLYETHYLENE GLYCOL 3350 119 GM BTL PO SCH (11:00)
[2020-04-05] MEDS: PANTOPRAZOLE SODIUM 40 MG VIAL IVPUSH SCH ×2 (11:49→22:31)
[2020-04-05] MEDS ORDERED: SODIUM CHLORIDE 1,000 ML IV SCH ×2 (12:30→16:55)
[2020-04-05 13:28] LABS: ANISOCYTOSIS 1+; MACROCYTOSIS 1+; PLATELET ESTIMATE NORMAL; ROULEAU 1+
[2020-04-05 13:54] LABS: URIC ACID 1.9 mg/dL (2.6-7.2)
[2020-04-05] MEDS: SIMETHICONE 40 MG/0.6 ML BOTTLE PO SCH ×3 (17:12→22:29)
[2020-04-05] MEDS ORDERED: SODIUM CHLORIDE 500 ML IV ONE (17:15)
[2020-04-05 20:01] LABS: BLOOD UREA NITROGEN 36.5 mg/dL (7-18); CALCIUM 7.9 mg/dL (8.5-10.1)
[2020-04-05 20:05] LABS: CREATININE 0.8 mg/dL (0.55-1.3)
[2020-04-05] MEDS ORDERED: DEXTROSE 5%-0.45% SALINE 1,000 ML IV SCH (20:45)
[2020-04-05] MEDS: DEXTROSE 5%-NORMAL SALINE 1,000 ML IV SCH (22:25)
[2020-04-05] MEDS: ATORVASTATIN CA 40 MG TABLET (FP) GT SCH (22:27)
[2020-04-05] MEDS: NYSTATIN 100000 UNIT/GM TOPICAL OINTMENT 15 GM TUBE TP SCH (22:28)
[2020-04-05] MEDS: METOCLOPRAMIDE HCL INJECTION 10 MG/2 ML VIAL IVPUSH SCH (22:30)
[2020-04-06] MEDS: CEFTOLOZANE/TAZOBACTAM 3 GM in DEXTROSE 5%-WATER - 100 ML IVPB SCH ×3 (02:25→17:59)
[2020-04-06] MEDS: METOCLOPRAMIDE HCL INJECTION 10 MG/2 ML VIAL IVPUSH SCH ×3 (06:34→21:56)
[2020-04-06] MEDS: LEVOTHYROXINE NA 112 MCG TABLET (FP) PEG SCH (06:34)
[2020-04-06] MEDS: ALBUTEROL SO4 2.5/IPRATROPIUM 0.5 INH SOL 3 ML VIAL.NEB. NEB SCH ×5 (07:50→20:30)
[2020-04-06] MEDS ORDERED: SODIUM CHLORIDE 0.9% 500 ML INFUS.BAG IV ONE (09:45)
[2020-04-06 11:00] LABS: BASO % 0.3 % (0-2.0); EOS % 0.1 % (0-4.5); HEMATOCRIT 24.6 % (32.4-45.2); HEMOGLOBIN 7.6 GM/dL (10.7-15.3); LYMPH % 2.5 % (8-40); MCH 30.7 pg (25.7-33.7); MCHC 30.9 g/dl (32.0-36.0); MEAN CELL VOLUME 99.5 fl (80-96); MEAN PLT VOLUME 8.9 fl (7.5-11.1); MONO % 14.5 % (3.8-10.2); NEUT % 82.6 % (42.8-82.8); PLATELET COUNT 259 K/MM3 (134-434); RBC 2.47 M/mm3 (3.60-5.2); RDW 16.9 % (11.6-15.6); WHITE BLOOD COUNT 17.7 K/mm3 (4.0-10.0)
[2020-04-06 11:08] LABS: POTASSIUM 4.8 mmol/L (3.5-5.1)
[2020-04-06 11:12] LABS: ALBUMIN 1.4 g/dl (3.4-5.0); BLOOD UREA NITROGEN 40.9 mg/dL (7-18); CALCIUM 7.9 mg/dL (8.5-10.1)
[2020-04-06 11:15] LABS: CREATININE 1.1 mg/dL (0.55-1.3)
[2020-04-06 11:17] LABS: BILIRUBIN,TOTAL 0.3 mg/dL (0.2-1); TOT PROT 5.9 g/dl (6.4-8.2)
[2020-04-06] MEDS: LACTOBACILLUS ACIDOPHILUS 1 TABLET GT SCH (11:38)
[2020-04-06] MEDS: SUCRALFATE 1 GM/10 ML UNIT DOSE CUPS PEG SCH ×2 (11:38→21:55)
[2020-04-06] MEDS: FERROUS SO4 300 MG/5 ML ORAL SOLN UNIT DOSE CUPS GT SCH (11:39)
[2020-04-06] MEDS: SIMETHICONE 40 MG/0.6 ML BOTTLE PO SCH ×4 (11:40→21:55)
[2020-04-06] MEDS: ASCORBIC ACID 500 MG/5 ML UNIT DOSE CUP GT SCH ×2 (11:40→21:55)
[2020-04-06] MEDS: PANTOPRAZOLE SODIUM 40 MG VIAL IVPUSH SCH ×2 (11:40→21:56)
[2020-04-06] MEDS: MULTIVIT-MINERALS ORAL LIQUID GT SCH (11:40)
[2020-04-06] MEDS: FAMOTIDINE 40 MG/5 ML ORAL SUSPENSION PEG SCH (11:41)
[2020-04-06] MEDS: NYSTATIN 100000 UNIT/GM TOPICAL OINTMENT 15 GM TUBE TP SCH ×2 (11:41→21:56)
[2020-04-06] MEDS: APIXABAN 5 MG TABLET GT SCH ×2 (11:43→21:56)
[2020-04-06] MEDS ORDERED: ACETAMINOPHEN 1000 MG/100 ML VIAL (NON FORMULARY) IVPB ONE (14:57)
[2020-04-06] MEDS: ATORVASTATIN CA 40 MG TABLET (FP) GT SCH (21:56)
[2020-04-07] MEDS: DEXTROSE 5%-NORMAL SALINE 1,000 ML IV SCH (01:34)
[2020-04-07] MEDS: CEFTOLOZANE/TAZOBACTAM 3 GM in DEXTROSE 5%-WATER - 100 ML IVPB SCH ×3 (01:35→23:35)
[2020-04-07] MEDS ORDERED: SIMETHICONE 40 MG/0.6 ML BOTTLE GT SCH (05:27)
[2020-04-07] MEDS: LEVOTHYROXINE NA 112 MCG TABLET (FP) PEG SCH (06:25)
[2020-04-07] MEDS: METOCLOPRAMIDE HCL INJECTION 10 MG/2 ML VIAL IVPUSH SCH ×3 (06:25→22:34)
[2020-04-07] MEDS: ALBUTEROL SO4 2.5/IPRATROPIUM 0.5 INH SOL 3 ML VIAL.NEB. NEB SCH ×4 (07:45→20:12)
[2020-04-07] MEDS ORDERED: PT OWN MED DRAWER 7, Y5N ONE ×7 (08:05→22:26)
[2020-04-07 08:52] LABS: BASO % 0.5 % (0-2.0); EOS % 0.1 % (0-4.5); HEMATOCRIT 24.9 % (32.4-45.2); HEMOGLOBIN 7.6 GM/dL (10.7-15.3); LYMPH % 2.3 % (8-40); MCH 30.4 pg (25.7-33.7); MCHC 30.4 g/dl (32.0-36.0); MEAN PLT VOLUME 8.5 fl (7.5-11.1); MONO % 11.6 % (3.8-10.2); NEUT % 85.5 % (42.8-82.8); PLATELET COUNT 267 K/MM3 (134-434); RBC 2.49 M/mm3 (3.60-5.2); RDW 17.4 % (11.6-15.6); WHITE BLOOD COUNT 17.6 K/mm3 (4.0-10.0)
[2020-04-07 09:09] LABS: POTASSIUM 4.7 mmol/L (3.5-5.1)
[2020-04-07 09:15] LABS: ALBUMIN 1.4 g/dl (3.4-5.0); BLOOD UREA NITROGEN 44.2 mg/dL (7-18); CALCIUM 8.5 mg/dL (8.5-10.1)
[2020-04-07 09:20] LABS: BILIRUBIN,TOTAL 0.3 mg/dL (0.2-1); CREATININE 1.3 mg/dL (0.55-1.3)
[2020-04-07] MEDS: SUCRALFATE 1 GM/10 ML UNIT DOSE CUPS PEG SCH ×2 (09:58→22:37)
[2020-04-07] MEDS: FERROUS SO4 300 MG/5 ML ORAL SOLN UNIT DOSE CUPS GT SCH (09:58)
[2020-04-07] MEDS: PANTOPRAZOLE SODIUM 40 MG VIAL IVPUSH SCH ×2 (09:58→22:34)
[2020-04-07] MEDS: LACTOBACILLUS ACIDOPHILUS 1 TABLET GT SCH (09:58)
[2020-04-07] MEDS: NYSTATIN 100000 UNIT/GM TOPICAL OINTMENT 15 GM TUBE TP SCH ×2 (09:59→22:37)
[2020-04-07] MEDS: ASCORBIC ACID 500 MG/5 ML UNIT DOSE CUP GT SCH ×2 (09:59→22:36)
[2020-04-07] MEDS: FAMOTIDINE 40 MG/5 ML ORAL SUSPENSION PEG SCH (09:59)
[2020-04-07] MEDS: MULTIVIT-MINERALS ORAL LIQUID GT SCH (09:59)
[2020-04-07] MEDS: SIMETHICONE 40 MG/0.6 ML BOTTLE GT SCH ×4 (10:00→22:36)
[2020-04-07] MEDS: APIXABAN 5 MG TABLET GT SCH (10:04)
[2020-04-07] MEDS ORDERED: SODIUM CHLORIDE 500 ML IV STA (10:20)
[2020-04-07 14:31] LABS: BASO % 0.4 % (0-2.0); HEMATOCRIT 26.5 % (32.4-45.2); HEMOGLOBIN 7.9 GM/dL (10.7-15.3); LYMPH % 2.3 % (8-40); MCH 30.2 pg (25.7-33.7); MCHC 29.8 g/dl (32.0-36.0); MEAN CELL VOLUME 101.2 fl (80-96); MEAN PLT VOLUME 8.9 fl (7.5-11.1); MONO % 14.9 % (3.8-10.2); NEUT % 82.4 % (42.8-82.8); PLATELET COUNT 285 K/MM3 (134-434); RBC 2.62 M/mm3 (3.60-5.2); WHITE BLOOD COUNT 17.5 K/mm3 (4.0-10.0)
[2020-04-07 14:36] LABS: ARTERIAL BLD GAS O2 SATURATION 81.9 mmHg (95-98); ARTERIAL BLOOD GAS BASE EXCESS 1.3 mmol/L (-2-2); ARTERIAL BLOOD GAS PO2 66.2 mmHg (80-100)
[2020-04-07 14:43] LABS: INR 2.17 (0.83-1.09); PROTHROMBIN TIME (PATIENT) 25.7 SEC (9.7-13.0)
[2020-04-07 14:48] LABS: POTASSIUM 4.9 mmol/L (3.5-5.1)
[2020-04-07 14:50] LABS: CALCIUM 8.7 mg/dL (8.5-10.1)
[2020-04-07 14:52] LABS: ALBUMIN 1.5 g/dl (3.4-5.0); BLOOD UREA NITROGEN 47.4 mg/dL (7-18)
[2020-04-07 14:53] LABS: ARTERIAL BLOOD GAS pH 7.072 (7.350-7.450)
[2020-04-07 14:54] LABS: CREATININE 1.5 mg/dL (0.55-1.3)
[2020-04-07 14:56] LABS: BILIRUBIN,TOTAL 0.3 mg/dL (0.2-1); TOT PROT 6.4 g/dl (6.4-8.2)
[2020-04-07 16:31] LABS: ARTERIAL BLD GAS O2 SATURATION 95.6 mmHg (95-98); ARTERIAL BLOOD GAS BASE EXCESS 4.2 mmol/L (-2-2); ARTERIAL BLOOD GAS PO2 104.7 mmHg (80-100)
[2020-04-07 16:37] LABS: ALLENS TEST POSITIVE
[2020-04-07 16:38] LABS: VENT RATE 24
[2020-04-07 16:40] LABS: ARTERIAL BLOOD GAS pH 7.145 (7.350-7.450)
[2020-04-07] MEDS ORDERED: VANCOMYCIN 1 GRAM (PRE-DOCKED) 1,000 MG/250 ML BAG IVPB ONE (17:13)
[2020-04-07] MEDS: ALBUMIN HUMAN 25% 100 ML VIAL IVPB SCH ×7 (17:30→21:41)
[2020-04-07] MEDS: MIDODRINE HCL 5 MG TABLET PO SCH (18:13)
[2020-04-07] MEDS: ACETAMINOPHEN 650 MG/20.3 ML ORAL SOLUTION (CUPS) GT PRN (22:35)
[2020-04-07] MEDS: clonazePAM 0.25 MG ODT TABLETS GT PRN (22:36)
[2020-04-07] MEDS: ATORVASTATIN CA 40 MG TABLET (FP) GT SCH (22:36)
[2020-04-08] MEDS: CEFTOLOZANE/TAZOBACTAM 3 GM in DEXTROSE 5%-WATER - 100 ML IVPB SCH ×2 (01:07→10:46)
[2020-04-08] MEDS: ACETAMINOPHEN 650 MG/20.3 ML ORAL SOLUTION (CUPS) GT PRN (06:33)
[2020-04-08] MEDS: METOCLOPRAMIDE HCL INJECTION 10 MG/2 ML VIAL IVPUSH SCH ×4 (06:34→23:18)
[2020-04-08] MEDS: LEVOTHYROXINE NA 112 MCG TABLET (FP) PEG SCH (06:34)
[2020-04-08] MEDS: ALBUTEROL SO4 2.5/IPRATROPIUM 0.5 INH SOL 3 ML VIAL.NEB. NEB SCH ×4 (07:45→20:10)
[2020-04-08] MEDS ORDERED: PT OWN MED DRAWER 7, Y5N ONE ×5 (08:21→23:20)
[2020-04-08 09:40] LABS: BASO % 0.6 % (0-2.0); EOS % 0.1 % (0-4.5); HEMATOCRIT 22.2 % (32.4-45.2); LYMPH % 4.5 % (8-40); MCH 29.2 pg (25.7-33.7); MCHC 29.4 g/dl (32.0-36.0); MEAN CELL VOLUME 99.5 fl (80-96); MEAN PLT VOLUME 8.7 fl (7.5-11.1); MONO % 15.1 % (3.8-10.2); NEUT % 79.7 % (42.8-82.8); PLATELET COUNT 249 K/MM3 (134-434); RBC 2.23 M/mm3 (3.60-5.2); RDW 17.3 % (11.6-15.6); WHITE BLOOD COUNT 11.9 K/mm3 (4.0-10.0)
[2020-04-08 10:16] LABS: ALBUMIN 2.5 g/dl (3.4-5.0); BLOOD UREA NITROGEN 50.6 mg/dL (7-18)
[2020-04-08 10:17] LABS: BILIRUBIN,TOTAL 0.5 mg/dL (0.2-1); MAGNESIUM 2.4 mg/dL (1.8-2.4); TOT PROT 6.3 g/dl (6.4-8.2)
[2020-04-08 10:19] LABS: CALCIUM 8.8 mg/dL (8.5-10.1); CREATININE 1.9 mg/dL (0.55-1.3); PHOSPHOROUS 4.5 mg/dL (2.5-4.9)
[2020-04-08] MEDS ORDERED: FUROSEMIDE 40 MG/4 ML INJECTABLE VIAL IVPUSH ONE (10:30)
[2020-04-08] MEDS: PANTOPRAZOLE SODIUM 40 MG VIAL IVPUSH SCH ×2 (10:40→23:15)
[2020-04-08] MEDS: FERROUS SO4 300 MG/5 ML ORAL SOLN UNIT DOSE CUPS GT SCH (10:41)
[2020-04-08] MEDS: SUCRALFATE 1 GM/10 ML UNIT DOSE CUPS PEG SCH ×2 (10:41→23:19)
[2020-04-08] MEDS: MULTIVIT-MINERALS ORAL LIQUID GT SCH (10:43)
[2020-04-08] MEDS: LACTOBACILLUS ACIDOPHILUS 1 TABLET GT SCH (10:43)
[2020-04-08] MEDS: NYSTATIN 100000 UNIT/GM TOPICAL OINTMENT 15 GM TUBE TP SCH ×2 (10:44→23:19)
[2020-04-08] MEDS: ESCITALOPRAM OXALATE 5 MG/5 ML GT SCH (10:44)
[2020-04-08] MEDS: FAMOTIDINE 40 MG/5 ML ORAL SUSPENSION PEG SCH (10:45)
[2020-04-08] MEDS: MIDODRINE HCL 5 MG TABLET PO SCH ×3 (10:45→19:41)
[2020-04-08] MEDS: ASCORBIC ACID 500 MG/5 ML UNIT DOSE CUP GT SCH ×2 (10:46→23:21)
[2020-04-08] MEDS: SIMETHICONE 40 MG/0.6 ML BOTTLE GT SCH ×4 (10:48→23:21)
[2020-04-08 13:50] LABS: HEMOGLOBIN 6.5 GM/dL (10.7-15.3)
[2020-04-08] MEDS ORDERED: LORazepam 2 MG/ML SDV VIAL ONE (14:25)
[2020-04-08] MEDS ORDERED: LORazepam 2 MG/ML SDV VIAL IVPUSH STA (14:26)
[2020-04-08] MEDS ORDERED: CEFTOLOZANE/TAZOBACTAM (ZERBAXA) 1.5 GM/11.4 ML VIAL IV SCH (16:15)
[2020-04-08] MEDS: DEXTROSE 5% IVPB SCH (20:20)
[2020-04-08] MEDS: CEFTOLOZANE IVPB SCH (20:20)
[2020-04-08] MEDS: WATER IVPB SCH (20:20)
[2020-04-08] MEDS: TAZOBACTAM IVPB SCH (20:20)
[2020-04-08] MEDS: clonazePAM 0.25 MG ODT TABLETS GT PRN (23:14)
[2020-04-08] MEDS: ATORVASTATIN CA 40 MG TABLET (FP) GT SCH (23:15)
[2020-04-09] MEDS: WATER IVPB SCH ×3 (01:30→17:13)
[2020-04-09] MEDS: TAZOBACTAM IVPB SCH ×3 (01:30→17:13)
[2020-04-09] MEDS: CEFTOLOZANE IVPB SCH ×3 (01:30→17:13)
[2020-04-09] MEDS: DEXTROSE 5% IVPB SCH ×3 (01:30→17:13)
[2020-04-09] MEDS: METOCLOPRAMIDE HCL INJECTION 10 MG/2 ML VIAL IVPUSH SCH ×3 (06:18→21:50)
[2020-04-09] MEDS: LEVOTHYROXINE NA 112 MCG TABLET (FP) PEG SCH (06:18)
[2020-04-09] MEDS: ALBUTEROL SO4 2.5/IPRATROPIUM 0.5 INH SOL 3 ML VIAL.NEB. NEB SCH ×4 (08:03→20:00)
[2020-04-09 08:46] LABS: URINE APPEARANCE TURBID; URINE BILIRUBIN 2+ (NEGATIVE); URINE COLOR RED; URINE GLUCOSE (UA) NEGATIVE (NEGATIVE); URINE KETONE NEGATIVE (NEGATIVE); URINE LEUK ESTERASE 2+ (NEGATIVE); URINE NITRITE POSITIVE (NEGATIVE); URINE PROTEIN 1+ (NEGATIVE); URINE UROBILINOGEN 0.2 mg/dL (0.2-1.0)
[2020-04-09 09:04] LABS: BASO % 0.4 % (0-2.0); EOS % 0.1 % (0-4.5); HEMATOCRIT 30.7 % (32.4-45.2); HEMOGLOBIN 9.4 GM/dL (10.7-15.3); LYMPH % 2.6 % (8-40); MCH 29.6 pg (25.7-33.7); MCHC 30.4 g/dl (32.0-36.0); MEAN CELL VOLUME 97.1 fl (80-96); MEAN PLT VOLUME 8.9 fl (7.5-11.1); MONO % 14.3 % (3.8-10.2); NEUT % 82.6 % (42.8-82.8); PLATELET COUNT 226 K/MM3 (134-434); RBC 3.17 M/mm3 (3.60-5.2); RDW 15.9 % (11.6-15.6); WHITE BLOOD COUNT 13.3 K/mm3 (4.0-10.0)
[2020-04-09 09:20] LABS: POTASSIUM 5.3 mmol/L (3.5-5.1)
[2020-04-09 09:22] LABS: CALCIUM 9.2 mg/dL (8.5-10.1)
[2020-04-09 09:23] LABS: ALBUMIN 2.4 g/dl (3.4-5.0); BLOOD UREA NITROGEN 64.9 mg/dL (7-18); MAGNESIUM 2.5 mg/dL (1.8-2.4)
[2020-04-09 09:26] LABS: CREATININE 2.5 mg/dL (0.55-1.3); PHOSPHOROUS 5.8 mg/dL (2.5-4.9)
[2020-04-09 09:28] LABS: TOT PROT 6.3 g/dl (6.4-8.2)
[2020-04-09] MEDS ORDERED: PT OWN MED DRAWER 7, Y5N ONE ×5 (09:44→20:35)
[2020-04-09] MEDS: ASCORBIC ACID 500 MG/5 ML UNIT DOSE CUP GT SCH ×2 (11:05→21:50)
[2020-04-09] MEDS: PANTOPRAZOLE SODIUM 40 MG VIAL IVPUSH SCH ×2 (11:05→21:49)
[2020-04-09] MEDS: SIMETHICONE 40 MG/0.6 ML BOTTLE GT SCH ×4 (11:05→21:49)
[2020-04-09] MEDS: SUCRALFATE 1 GM/10 ML UNIT DOSE CUPS PEG SCH ×2 (11:06→21:49)
[2020-04-09] MEDS: MULTIVIT-MINERALS ORAL LIQUID GT SCH (11:06)
[2020-04-09] MEDS: FERROUS SO4 300 MG/5 ML ORAL SOLN UNIT DOSE CUPS GT SCH (11:06)
[2020-04-09] MEDS: LACTOBACILLUS ACIDOPHILUS 1 TABLET GT SCH (11:06)
[2020-04-09] MEDS: FAMOTIDINE 40 MG/5 ML ORAL SUSPENSION PEG SCH (11:06)
[2020-04-09] MEDS: ESCITALOPRAM OXALATE 5 MG/5 ML GT SCH (11:06)
[2020-04-09] MEDS: NYSTATIN 100000 UNIT/GM TOPICAL OINTMENT 15 GM TUBE TP SCH ×2 (11:07→21:54)
[2020-04-09] MEDS: MIDODRINE HCL 5 MG TABLET PO SCH ×3 (11:10→18:54)
[2020-04-09 12:25] LABS: ARTERIAL BLD GAS O2 SATURATION 95.4 mmHg (95-98); ARTERIAL BLOOD GAS BASE EXCESS -5.4 mmol/L (-2-2); ARTERIAL BLOOD GAS PO2 105.6 mmHg (80-100)
[2020-04-09 12:30] LABS: ARTERIAL BLOOD GAS pH 7.097 (7.350-7.450)
[2020-04-09 12:31] LABS: ALLENS TEST POSITIVE
[2020-04-09 12:32] LABS: VENT MODE A/C; VENT RATE 24
[2020-04-09] MEDS: ATORVASTATIN CA 40 MG TABLET (FP) GT SCH (21:49)
[2020-04-10] MEDS: CEFTOLOZANE IVPB SCH ×3 (01:17→17:41)
[2020-04-10] MEDS: TAZOBACTAM IVPB SCH ×3 (01:17→17:41)
[2020-04-10] MEDS: DEXTROSE 5% IVPB SCH ×3 (01:17→17:41)
[2020-04-10] MEDS: WATER IVPB SCH ×3 (01:17→17:41)
[2020-04-10] MEDS: LEVOTHYROXINE NA 112 MCG TABLET (FP) PEG SCH (06:08)
[2020-04-10] MEDS: METOCLOPRAMIDE HCL INJECTION 10 MG/2 ML VIAL IVPUSH SCH ×3 (06:08→21:17)
[2020-04-10] MEDS: ALBUTEROL SO4 2.5/IPRATROPIUM 0.5 INH SOL 3 ML VIAL.NEB. NEB SCH ×4 (08:00→20:14)
[2020-04-10 08:33] LABS: BASO % 0.7 % (0-2.0); HEMATOCRIT 26.6 % (32.4-45.2); HEMOGLOBIN 8.6 GM/dL (10.7-15.3); LYMPH % 3.3 % (8-40); MCH 30.7 pg (25.7-33.7); MCHC 32.5 g/dl (32.0-36.0); MEAN CELL VOLUME 94.7 fl (80-96); MEAN PLT VOLUME 8.9 fl (7.5-11.1); MONO % 15.5 % (3.8-10.2); NEUT % 80.5 % (42.8-82.8); PLATELET COUNT 228 K/MM3 (134-434); RBC 2.81 M/mm3 (3.60-5.2); RDW 16.1 % (11.6-15.6); WHITE BLOOD COUNT 13.2 K/mm3 (4.0-10.0)
[2020-04-10 08:44] LABS: POTASSIUM 5.2 mmol/L (3.5-5.1)
[2020-04-10 08:52] LABS: CALCIUM 9.3 mg/dL (8.5-10.1)
[2020-04-10 08:53] LABS: ALBUMIN 2.1 g/dl (3.4-5.0)
[2020-04-10 08:57] LABS: BILIRUBIN,TOTAL 0.6 mg/dL (0.2-1)
[2020-04-10 08:58] LABS: TOT PROT 6.2 g/dl (6.4-8.2)
[2020-04-10] MEDS: FERROUS SO4 300 MG/5 ML ORAL SOLN UNIT DOSE CUPS GT SCH (10:16)
[2020-04-10] MEDS: SUCRALFATE 1 GM/10 ML UNIT DOSE CUPS PEG SCH ×2 (10:16→21:17)
[2020-04-10] MEDS: ESCITALOPRAM OXALATE 5 MG/5 ML GT SCH (10:17)
[2020-04-10] MEDS: MIDODRINE HCL 5 MG TABLET PO SCH ×3 (10:17→18:02)
[2020-04-10] MEDS: PANTOPRAZOLE SODIUM 40 MG VIAL IVPUSH SCH ×2 (10:17→21:17)
[2020-04-10] MEDS: LACTOBACILLUS ACIDOPHILUS 1 TABLET GT SCH (10:17)
[2020-04-10] MEDS: SIMETHICONE 40 MG/0.6 ML BOTTLE GT SCH ×4 (10:17→21:20)
[2020-04-10] MEDS: FAMOTIDINE 40 MG/5 ML ORAL SUSPENSION PEG SCH (10:17)
[2020-04-10] MEDS: NYSTATIN 100000 UNIT/GM TOPICAL OINTMENT 15 GM TUBE TP SCH ×2 (10:18→21:32)
[2020-04-10] MEDS: MULTIVIT-MINERALS ORAL LIQUID GT SCH (10:18)
[2020-04-10] MEDS: ASCORBIC ACID 500 MG/5 ML UNIT DOSE CUP GT SCH ×2 (10:18→21:32)
[2020-04-10 11:52] LABS: ARTERIAL BLD GAS O2 SATURATION 96.6 mmHg (95-98); ARTERIAL BLOOD GAS BASE EXCESS -5.9 mmol/L (-2-2); ARTERIAL BLOOD GAS PO2 118.8 mmHg (80-100)
[2020-04-10 11:54] LABS: ALLENS TEST POSITIVE; VENT MODE A/C; VENT RATE 30
[2020-04-10 11:56] LABS: ARTERIAL BLOOD GAS pH 7.097 (7.350-7.450)
[2020-04-10] MEDS ORDERED: FUROSEMIDE 100 MG/10 ML INJECTABLE VIAL IVPB ONE ×2 (17:17)
[2020-04-10] MEDS ORDERED: FUROSEMIDE 40 MG/4 ML INJECTABLE VIAL IVPUSH ONE (17:25)
[2020-04-10] MEDS ORDERED: SODIUM CHLORIDE 250 ML IV STA (17:28)
[2020-04-10] MEDS ORDERED: PT OWN MED DRAWER 7, Y5N ONE ×3 (17:39→21:31)
[2020-04-10] MEDS ORDERED: FUROSEMIDE INJECTION 100 MG in DEXTROSE 5%-WATER - 90 ML IVPB ONE (17:45)
[2020-04-10] MEDS ORDERED: CEFTOLOZANE/TAZOBACTAM (ZERBAXA) 1.5 GM/11.4 ML VIAL IV SCH (18:00)
[2020-04-10] MEDS: ATORVASTATIN CA 40 MG TABLET (FP) GT SCH (21:17)
[2020-04-11] MEDS ORDERED: PT OWN MED DRAWER 7, Y5N ONE ×6 (01:21→21:49)
[2020-04-11] MEDS: TAZOBACTAM IVPB SCH ×3 (01:28→17:18)
[2020-04-11] MEDS: DEXTROSE 5% IVPB SCH ×3 (01:28→17:18)
[2020-04-11] MEDS: WATER IVPB SCH ×3 (01:28→17:18)
[2020-04-11] MEDS: CEFTOLOZANE IVPB SCH ×3 (01:28→17:18)
[2020-04-11] MEDS: METOCLOPRAMIDE HCL INJECTION 10 MG/2 ML VIAL IVPUSH SCH ×3 (06:02→23:01)
[2020-04-11] MEDS: LEVOTHYROXINE NA 112 MCG TABLET (FP) PEG SCH (06:12)
[2020-04-11] MEDS: ALBUTEROL SO4 2.5/IPRATROPIUM 0.5 INH SOL 3 ML VIAL.NEB. NEB SCH ×3 (07:30→16:05)
[2020-04-11 09:07] LABS: BASO % 0.6 % (0-2.0); EOS % 0.1 % (0-4.5); HEMATOCRIT 24.1 % (32.4-45.2); HEMOGLOBIN 7.9 GM/dL (10.7-15.3); LYMPH % 5.2 % (8-40); MCH 31.2 pg (25.7-33.7); MCHC 32.7 g/dl (32.0-36.0); MEAN CELL VOLUME 95.5 fl (80-96); NEUT % 76.1 % (42.8-82.8); PLATELET COUNT 211 K/MM3 (134-434); RBC 2.53 M/mm3 (3.60-5.2); RDW 16.1 % (11.6-15.6); WHITE BLOOD COUNT 12.5 K/mm3 (4.0-10.0)
[2020-04-11 09:27] LABS: POTASSIUM 5.3 mmol/L (3.5-5.1)
[2020-04-11 09:31] LABS: ALBUMIN 1.9 g/dl (3.4-5.0); BLOOD UREA NITROGEN 79.8 mg/dL (7-18); CALCIUM 9.1 mg/dL (8.5-10.1)
[2020-04-11 09:35] LABS: CREATININE 3.4 mg/dL (0.55-1.3)
[2020-04-11 09:36] LABS: BILIRUBIN,TOTAL 0.5 mg/dL (0.2-1)
[2020-04-11] MEDS: SUCRALFATE 1 GM/10 ML UNIT DOSE CUPS PEG SCH ×2 (09:40→21:56)
[2020-04-11] MEDS: MIDODRINE HCL 5 MG TABLET PO SCH ×3 (09:40→18:37)
[2020-04-11] MEDS: FERROUS SO4 300 MG/5 ML ORAL SOLN UNIT DOSE CUPS GT SCH (09:40)
[2020-04-11] MEDS: PANTOPRAZOLE SODIUM 40 MG VIAL IVPUSH SCH ×2 (09:41→23:02)
[2020-04-11] MEDS: LACTOBACILLUS ACIDOPHILUS 1 TABLET GT SCH (09:41)
[2020-04-11] MEDS: SIMETHICONE 40 MG/0.6 ML BOTTLE GT SCH ×4 (09:43→21:56)
[2020-04-11] MEDS: ASCORBIC ACID 500 MG/5 ML UNIT DOSE CUP GT SCH ×2 (09:44→21:56)
[2020-04-11] MEDS: ESCITALOPRAM OXALATE 5 MG/5 ML GT SCH (09:44)
[2020-04-11] MEDS: NYSTATIN 100000 UNIT/GM TOPICAL OINTMENT 15 GM TUBE TP SCH ×2 (09:45→21:57)
[2020-04-11] MEDS: MULTIVIT-MINERALS ORAL LIQUID GT SCH (09:45)
[2020-04-11] MEDS: FAMOTIDINE 40 MG/5 ML ORAL SUSPENSION PEG SCH (09:46)
[2020-04-11] MEDS ORDERED: PHYTONADIONE 10 MG/1 ML AMP IVPB ONE (13:30)
[2020-04-11] MEDS ORDERED: DESMOPRESSIN ACETATE 4 MCG/ML AMP IVPB STA (14:08)
[2020-04-11] MEDS ORDERED: FUROSEMIDE INJECTION 100 MG in DEXTROSE 5%-WATER - 90 ML IVPB SCH ×2 (14:45→16:15)
[2020-04-11] MEDS: ATORVASTATIN CA 40 MG TABLET (FP) GT SCH (21:56)
[2020-04-11] MEDS ORDERED: MUPIROCIN 2% TOPICAL OINTMENT FOR DECOLONIZATION NS SCH (22:00)
[2020-04-11] MEDS ORDERED: CHLORHEXIDINE GLUCONATE 4% CLEANSER FOR DECOLONIZATION TP SCH (22:00)
[2020-04-12] MEDS: WATER IVPB SCH ×3 (02:30→17:42)
[2020-04-12] MEDS: TAZOBACTAM IVPB SCH ×3 (02:30→17:42)
[2020-04-12] MEDS: DEXTROSE 5% IVPB SCH ×3 (02:30→17:42)
[2020-04-12] MEDS: CEFTOLOZANE IVPB SCH ×3 (02:30→17:42)
[2020-04-12] MEDS ORDERED: clonazePAM 0.25 MG ODT TABLETS GT PRN (03:39)
[2020-04-12] MEDS ORDERED: ACETAMINOPHEN 650 MG/20.3 ML ORAL SOLUTION (CUPS) GT PRN (03:39)
[2020-04-12] MEDS ORDERED: VASOPRESSIN 20 UNITS/ML VIAL IV ONE (03:48)
[2020-04-12] MEDS: VASOPRESSIN 40 UNITS in SODIUM CHLORIDE 98 ML IVPB SCH ×2 (04:02→07:00)
[2020-04-12] MEDS: LEVOTHYROXINE NA 112 MCG TABLET (FP) PEG SCH (06:17)
[2020-04-12] MEDS: METOCLOPRAMIDE HCL INJECTION 10 MG/2 ML VIAL IVPUSH SCH ×3 (06:23→21:00)
[2020-04-12] MEDS ORDERED: SODIUM CHLORIDE 500 ML IV STA (07:21)
[2020-04-12] MEDS ORDERED: NOREPINEPHRINE BITARTRATE 4,000 MCG in DEXTROSE 5%-WATER - 496 ML IV SCH (07:30)
[2020-04-12] MEDS: ALBUTEROL SO4 2.5/IPRATROPIUM 0.5 INH SOL 3 ML VIAL.NEB. NEB SCH ×4 (08:09→22:00)
[2020-04-12] MEDS ORDERED: FUROSEMIDE INJECTION 100 MG in SODIUM CHLORIDE 90 ML IVPB SCH (10:00)
[2020-04-12] MEDS: ESCITALOPRAM OXALATE 5 MG/5 ML GT SCH (10:12)
[2020-04-12] MEDS: SUCRALFATE 1 GM/10 ML UNIT DOSE CUPS PEG SCH ×2 (10:13→21:00)
[2020-04-12] MEDS: SIMETHICONE 40 MG/0.6 ML BOTTLE GT SCH ×4 (10:14→21:01)
[2020-04-12] MEDS: NYSTATIN 100000 UNIT/GM TOPICAL OINTMENT 15 GM TUBE TP SCH ×2 (10:15→21:00)
[2020-04-12] MEDS: FAMOTIDINE 40 MG/5 ML ORAL SUSPENSION PEG SCH (10:15)
[2020-04-12] MEDS: ASCORBIC ACID 500 MG/5 ML UNIT DOSE CUP GT SCH ×2 (10:16→21:02)
[2020-04-12] MEDS ORDERED: PT OWN MED DRAWER 7, Y5N ONE ×5 (10:20→20:47)
[2020-04-12] MEDS: LACTOBACILLUS ACIDOPHILUS 1 TABLET GT SCH (10:22)
[2020-04-12] MEDS: MIDODRINE HCL 5 MG TABLET PO SCH ×3 (10:23→17:45)
[2020-04-12 10:29] LABS: BASO % 0.4 % (0-2.0); EOS % 0.1 % (0-4.5); HEMATOCRIT 35.2 % (32.4-45.2); HEMOGLOBIN 11.2 GM/dL (10.7-15.3); LYMPH % 2.9 % (8-40); MCH 29.8 pg (25.7-33.7); MCHC 31.9 g/dl (32.0-36.0); MEAN CELL VOLUME 93.5 fl (80-96); MEAN PLT VOLUME 9.2 fl (7.5-11.1); MONO % 17.8 % (3.8-10.2); NEUT % 78.8 % (42.8-82.8); PLATELET COUNT 195 K/MM3 (134-434); RBC 3.76 M/mm3 (3.60-5.2); RDW 15.9 % (11.6-15.6)
[2020-04-12] MEDS: FERROUS SO4 300 MG/5 ML ORAL SOLN UNIT DOSE CUPS GT SCH (10:35)
[2020-04-12] MEDS: PANTOPRAZOLE SODIUM 40 MG VIAL IVPUSH SCH ×3 (10:35→21:00)
[2020-04-12 10:36] LABS: INR 1.45 (0.83-1.09); PROTHROMBIN TIME (PATIENT) 17.7 SEC (9.7-13.0)
[2020-04-12 10:39] LABS: ACTIVATED PTT 40.7 SECONDS (25.2-36.5)
[2020-04-12 10:50] LABS: POTASSIUM 5.3 mmol/L (3.5-5.1)
[2020-04-12 10:57] LABS: CALCIUM 9.3 mg/dL (8.5-10.1)
[2020-04-12 10:58] LABS: BLOOD UREA NITROGEN 86.9 mg/dL (7-18)
[2020-04-12 11:01] LABS: CREATININE 3.7 mg/dL (0.55-1.3)
[2020-04-12 11:02] LABS: BILIRUBIN,TOTAL 1.2 mg/dL (0.2-1); TOT PROT 6.2 g/dl (6.4-8.2)
[2020-04-12] MEDS: MULTIVIT-MINERALS ORAL LIQUID GT SCH (12:56)
[2020-04-12] MEDS: FUROSEMIDE INJECTION 100 MG in SODIUM CHLORIDE 90 ML IVPB SCH (12:56)
[2020-04-12] MEDS: ATORVASTATIN CA 40 MG TABLET (FP) GT SCH (21:00)
[2020-04-12 21:26] LABS: BASO % 0.4 % (0-2.0); HEMATOCRIT 33.3 % (32.4-45.2); HEMOGLOBIN 10.8 GM/dL (10.7-15.3); LYMPH % 3.8 % (8-40); MCH 30.2 pg (25.7-33.7); MCHC 32.5 g/dl (32.0-36.0); MEAN PLT VOLUME 9.1 fl (7.5-11.1); MONO % 15.9 % (3.8-10.2); NEUT % 79.9 % (42.8-82.8); PLATELET COUNT 191 K/MM3 (134-434); RBC 3.58 M/mm3 (3.60-5.2); RDW 16.2 % (11.6-15.6); WHITE BLOOD COUNT 12.1 K/mm3 (4.0-10.0)
[2020-04-12 21:36] LABS: INR 1.46 (0.83-1.09); PROTHROMBIN TIME (PATIENT) 17.8 SEC (9.7-13.0)
[2020-04-12 21:39] LABS: ACTIVATED PTT 34.4 SECONDS (25.2-36.5)
[2020-04-13] MEDS ORDERED: NOREPINEPHRINE D5W PREMIX 16,000 MCG/500 ML BAG IVPB ONE
[2020-04-13] MEDS: NOREPINEPHRINE D5W PREMIX 16,000 MCG/500 ML BAG IVPB SCH ×2 (00:10→23:20)
[2020-04-13] MEDS: DEXTROSE 5% IVPB SCH ×3 (01:25→17:06)
[2020-04-13] MEDS: CEFTOLOZANE IVPB SCH ×3 (01:25→17:06)
[2020-04-13] MEDS: TAZOBACTAM IVPB SCH ×3 (01:25→17:06)
[2020-04-13] MEDS: WATER IVPB SCH ×3 (01:25→17:06)
[2020-04-13] MEDS: VASOPRESSIN 40 UNITS in SODIUM CHLORIDE 98 ML IVPB SCH (03:22)
[2020-04-13] MEDS: LEVOTHYROXINE NA 112 MCG TABLET (FP) PEG SCH (06:05)
[2020-04-13] MEDS: METOCLOPRAMIDE HCL INJECTION 10 MG/2 ML VIAL IVPUSH SCH ×3 (06:05→23:19)
[2020-04-13] MEDS: FUROSEMIDE INJECTION 100 MG in SODIUM CHLORIDE 90 ML IVPB SCH ×3 (06:51→23:23)
[2020-04-13 07:15] LABS: BASO % 0.3 % (0-2.0); EOS % 0.1 % (0-4.5); HEMATOCRIT 32.7 % (32.4-45.2); HEMOGLOBIN 10.6 GM/dL (10.7-15.3); LYMPH % 3.6 % (8-40); MCHC 32.6 g/dl (32.0-36.0); MEAN CELL VOLUME 92.3 fl (80-96); MONO % 18.9 % (3.8-10.2); NEUT % 77.1 % (42.8-82.8); PLATELET COUNT 201 K/MM3 (134-434); RBC 3.54 M/mm3 (3.60-5.2); RDW 16.3 % (11.6-15.6); WHITE BLOOD COUNT 13.9 K/mm3 (4.0-10.0)
[2020-04-13 07:26] LABS: INR 1.38 (0.83-1.09); PROTHROMBIN TIME (PATIENT) 16.8 SEC (9.7-13.0)
[2020-04-13 07:27] LABS: ACTIVATED PTT 34.1 SECONDS (25.2-36.5)
[2020-04-13 07:33] LABS: POTASSIUM 4.5 mmol/L (3.5-5.1)
[2020-04-13 07:35] LABS: ALBUMIN 1.9 g/dl (3.4-5.0); CALCIUM 9.4 mg/dL (8.5-10.1); MAGNESIUM 2.4 mg/dL (1.8-2.4)
[2020-04-13 07:36] LABS: BLOOD UREA NITROGEN 88.4 mg/dL (7-18)
[2020-04-13 07:38] LABS: CREATININE 3.7 mg/dL (0.55-1.3)
[2020-04-13 07:39] LABS: PHOSPHOROUS 5.6 mg/dL (2.5-4.9)
[2020-04-13 07:40] LABS: BILIRUBIN,TOTAL 0.6 mg/dL (0.2-1); TOT PROT 6.1 g/dl (6.4-8.2)
[2020-04-13] MEDS: ALBUTEROL SO4 2.5/IPRATROPIUM 0.5 INH SOL 3 ML VIAL.NEB. NEB SCH ×4 (08:37→20:35)
[2020-04-13] MEDS: PANTOPRAZOLE SODIUM 40 MG VIAL IVPUSH SCH ×2 (09:29→23:19)
[2020-04-13] MEDS: MIDODRINE HCL 5 MG TABLET PO SCH ×3 (09:29→17:47)
[2020-04-13] MEDS: LACTOBACILLUS ACIDOPHILUS 1 TABLET GT SCH (09:29)
[2020-04-13] MEDS: MULTIVIT-MINERALS ORAL LIQUID GT SCH (09:30)
[2020-04-13] MEDS: ASCORBIC ACID 500 MG/5 ML UNIT DOSE CUP GT SCH (09:30)
[2020-04-13] MEDS: SUCRALFATE 1 GM/10 ML UNIT DOSE CUPS PEG SCH ×2 (09:30→23:19)
[2020-04-13] MEDS: FERROUS SO4 300 MG/5 ML ORAL SOLN UNIT DOSE CUPS GT SCH (09:31)
[2020-04-13] MEDS ORDERED: PT OWN MED DRAWER 7, Y5N ONE ×5 (10:28→23:09)
[2020-04-13] MEDS: SIMETHICONE 40 MG/0.6 ML BOTTLE GT SCH ×4 (11:23→23:19)
[2020-04-13] MEDS: ESCITALOPRAM OXALATE 5 MG/5 ML GT SCH (11:24)
[2020-04-13] MEDS: morphine SULFATE 4 MG/ML VIAL IVPUSH PRN ×2 (11:55→23:24)
[2020-04-13] MEDS ORDERED: morphine SULFATE 4 MG/ML VIAL ONE (11:56)
[2020-04-13] MEDS: NYSTATIN 100000 UNIT/GM TOPICAL OINTMENT 15 GM TUBE TP SCH ×2 (14:44→23:19)
[2020-04-13] MEDS: FAMOTIDINE 40 MG/5 ML ORAL SUSPENSION PEG SCH (14:44)
[2020-04-13 16:12] VITALS: BMI 26.9
[2020-04-13] MEDS: ATORVASTATIN CA 40 MG TABLET (FP) GT SCH (23:19)
[2020-04-14] MEDS: ASCORBIC ACID 500 MG/5 ML UNIT DOSE CUP GT SCH ×3 (00:16→21:47)
[2020-04-14] MEDS: TAZOBACTAM IVPB SCH ×3 (01:38→17:48)
[2020-04-14] MEDS: WATER IVPB SCH ×3 (01:38→17:48)
[2020-04-14] MEDS: CEFTOLOZANE IVPB SCH ×3 (01:38→17:48)
[2020-04-14] MEDS: DEXTROSE 5% IVPB SCH ×3 (01:38→17:48)
[2020-04-14] MEDS: METOCLOPRAMIDE HCL INJECTION 10 MG/2 ML VIAL IVPUSH SCH ×3 (05:59→21:47)
[2020-04-14] MEDS: LEVOTHYROXINE NA 112 MCG TABLET (FP) PEG SCH (05:59)
[2020-04-14 06:49] LABS: POTASSIUM 4.3 mmol/L (3.5-5.1)
[2020-04-14 06:55] LABS: ALBUMIN 1.8 g/dl (3.4-5.0); BLOOD UREA NITROGEN 87.9 mg/dL (7-18); CALCIUM 9.3 mg/dL (8.5-10.1); MAGNESIUM 2.3 mg/dL (1.8-2.4)
[2020-04-14 06:59] LABS: PHOSPHOROUS 5.3 mg/dL (2.5-4.9)
[2020-04-14 07:00] LABS: BILIRUBIN,TOTAL 0.6 mg/dL (0.2-1); TOT PROT 5.8 g/dl (6.4-8.2)
[2020-04-14 07:18] LABS: BASO % 0.4 % (0-2.0); EOS % 0.3 % (0-4.5); HEMATOCRIT 30.4 % (32.4-45.2); HEMOGLOBIN 9.8 GM/dL (10.7-15.3); LYMPH % 6.3 % (8-40); MCH 30.3 pg (25.7-33.7); MCHC 32.4 g/dl (32.0-36.0); MEAN CELL VOLUME 93.6 fl (80-96); MEAN PLT VOLUME 9.3 fl (7.5-11.1); MONO % 17.7 % (3.8-10.2); NEUT % 75.3 % (42.8-82.8); PLATELET COUNT 186 K/MM3 (134-434); RBC 3.25 M/mm3 (3.60-5.2); RDW 16.5 % (11.6-15.6)
[2020-04-14 07:30] LABS: INR 1.35 (0.83-1.09); PROTHROMBIN TIME (PATIENT) 16.2 SEC (9.7-13.0)
[2020-04-14 07:32] LABS: ACTIVATED PTT 34.5 SECONDS (25.2-36.5)
[2020-04-14] MEDS: ALBUTEROL SO4 2.5/IPRATROPIUM 0.5 INH SOL 3 ML VIAL.NEB. NEB SCH ×4 (07:45→20:34)
[2020-04-14] MEDS: SUCRALFATE 1 GM/10 ML UNIT DOSE CUPS PEG SCH ×2 (09:52→21:46)
[2020-04-14] MEDS: FERROUS SO4 300 MG/5 ML ORAL SOLN UNIT DOSE CUPS GT SCH (09:52)
[2020-04-14] MEDS: MULTIVIT-MINERALS ORAL LIQUID GT SCH (09:52)
[2020-04-14] MEDS: MIDODRINE HCL 5 MG TABLET PO SCH ×3 (09:53→17:48)
[2020-04-14] MEDS: PANTOPRAZOLE SODIUM 40 MG VIAL IVPUSH SCH ×2 (09:54→21:47)
[2020-04-14] MEDS: FAMOTIDINE 40 MG/5 ML ORAL SUSPENSION PEG SCH (09:54)
[2020-04-14] MEDS: LACTOBACILLUS ACIDOPHILUS 1 TABLET GT SCH (10:08)
[2020-04-14] MEDS: NYSTATIN 100000 UNIT/GM TOPICAL OINTMENT 15 GM TUBE TP SCH ×2 (10:09→21:46)
[2020-04-14] MEDS: ESCITALOPRAM OXALATE 5 MG/5 ML GT SCH (11:00)
[2020-04-14] MEDS: SIMETHICONE 40 MG/0.6 ML BOTTLE GT SCH ×4 (11:00→23:34)
[2020-04-14] MEDS: FUROSEMIDE INJECTION 100 MG in SODIUM CHLORIDE 90 ML IVPB SCH ×2 (12:30→21:45)
[2020-04-14] MEDS: NOREPINEPHRINE D5W PREMIX 16,000 MCG/500 ML BAG IVPB SCH (14:57)
[2020-04-14] MEDS ORDERED: PT OWN MED DRAWER 7, Y5N ONE ×2 (17:32→21:43)
[2020-04-14] MEDS ORDERED: FUROSEMIDE 40 MG/4 ML INJECTABLE VIAL IVPUSH ONE (19:15)
[2020-04-14] MEDS: ATORVASTATIN CA 40 MG TABLET (FP) GT SCH (21:46)
[2020-04-14] MEDS: morphine SULFATE 4 MG/ML VIAL IVPUSH PRN (21:47)
[2020-04-15] MEDS: WATER IVPB SCH ×3 (02:38→17:36)
[2020-04-15] MEDS: TAZOBACTAM IVPB SCH ×3 (02:38→17:36)
[2020-04-15] MEDS: CEFTOLOZANE IVPB SCH ×3 (02:38→17:36)
[2020-04-15] MEDS: DEXTROSE 5% IVPB SCH ×3 (02:38→17:36)
[2020-04-15] MEDS: FUROSEMIDE INJECTION 100 MG in SODIUM CHLORIDE 90 ML IVPB SCH ×2 (04:27→14:00)
[2020-04-15] MEDS: METOCLOPRAMIDE HCL INJECTION 10 MG/2 ML VIAL IVPUSH SCH ×3 (06:31→22:06)
[2020-04-15] MEDS: LEVOTHYROXINE NA 112 MCG TABLET (FP) PEG SCH (06:32)
[2020-04-15] MEDS: morphine SULFATE 4 MG/ML VIAL IVPUSH PRN (06:32)
[2020-04-15 07:41] LABS: BASO % 0.3 % (0-2.0); EOS % 0.3 % (0-4.5); HEMATOCRIT 27.8 % (32.4-45.2); HEMOGLOBIN 9.1 GM/dL (10.7-15.3); MCH 30.5 pg (25.7-33.7); MCHC 32.5 g/dl (32.0-36.0); MEAN CELL VOLUME 93.7 fl (80-96); MEAN PLT VOLUME 9.7 fl (7.5-11.1); MONO % 13.9 % (3.8-10.2); NEUT % 82.5 % (42.8-82.8); PLATELET COUNT 175 K/MM3 (134-434); RBC 2.97 M/mm3 (3.60-5.2); WHITE BLOOD COUNT 14.2 K/mm3 (4.0-10.0)
[2020-04-15 07:54] LABS: POTASSIUM 4.3 mmol/L (3.5-5.1)
[2020-04-15 07:56] LABS: CALCIUM 9.1 mg/dL (8.5-10.1)
[2020-04-15 07:57] LABS: ALBUMIN 1.7 g/dl (3.4-5.0); MAGNESIUM 2.1 mg/dL (1.8-2.4)
[2020-04-15] MEDS: ALBUTEROL SO4 2.5/IPRATROPIUM 0.5 INH SOL 3 ML VIAL.NEB. NEB SCH ×4 (07:58→20:30)
[2020-04-15 08:00] LABS: BLOOD UREA NITROGEN 89.7 mg/dL (7-18); CREATININE 4.1 mg/dL (0.55-1.3); PHOSPHOROUS 5.6 mg/dL (2.5-4.9)
[2020-04-15 08:01] LABS: BILIRUBIN,TOTAL 0.5 mg/dL (0.2-1); TOT PROT 5.5 g/dl (6.4-8.2)
[2020-04-15] MEDS: VASOPRESSIN 40 UNITS in SODIUM CHLORIDE 98 ML IVPB SCH ×2 (09:01→22:07)
[2020-04-15] MEDS: MIDODRINE HCL 5 MG TABLET PO SCH ×3 (09:56→18:22)
[2020-04-15] MEDS: FERROUS SO4 300 MG/5 ML ORAL SOLN UNIT DOSE CUPS GT SCH (09:57)
[2020-04-15] MEDS: ASCORBIC ACID 500 MG/5 ML UNIT DOSE CUP GT SCH ×2 (09:57→22:05)
[2020-04-15] MEDS: SUCRALFATE 1 GM/10 ML UNIT DOSE CUPS PEG SCH ×2 (09:57→22:05)
[2020-04-15] MEDS: MULTIVIT-MINERALS ORAL LIQUID GT SCH (09:57)
[2020-04-15] MEDS: LACTOBACILLUS ACIDOPHILUS 1 TABLET GT SCH (09:58)
[2020-04-15] MEDS: SIMETHICONE 40 MG/0.6 ML BOTTLE GT SCH ×4 (09:59→22:55)
[2020-04-15] MEDS: FAMOTIDINE 40 MG/5 ML ORAL SUSPENSION PEG SCH (09:59)
[2020-04-15] MEDS: ESCITALOPRAM OXALATE 5 MG/5 ML GT SCH (10:00)
[2020-04-15] MEDS: NOREPINEPHRINE D5W PREMIX 16,000 MCG/500 ML BAG IVPB SCH (10:03)
[2020-04-15] MEDS: NYSTATIN 100000 UNIT/GM TOPICAL OINTMENT 15 GM TUBE TP SCH ×2 (10:05→22:05)
[2020-04-15] MEDS: PANTOPRAZOLE SODIUM 40 MG VIAL IVPUSH SCH ×2 (10:05→22:06)
[2020-04-15] MEDS ORDERED: FUROSEMIDE 100 MG/10 ML INJECTABLE VIAL IVPB ONE (14:30)
[2020-04-15] MEDS ORDERED: VANCOMYCIN 1 GRAM (PRE-DOCKED) 1,000 MG/250 ML BAG IVPB ONE (16:11)
[2020-04-15] MEDS ORDERED: PT OWN MED DRAWER 7, Y5N ONE (22:03)
[2020-04-15] MEDS: ATORVASTATIN CA 40 MG TABLET (FP) GT SCH (22:05)
[2020-04-16] MEDS: WATER IVPB SCH ×3 (02:55→17:35)
[2020-04-16] MEDS: DEXTROSE 5% IVPB SCH ×3 (02:55→17:35)
[2020-04-16] MEDS: CEFTOLOZANE IVPB SCH ×3 (02:55→17:35)
[2020-04-16] MEDS: TAZOBACTAM IVPB SCH ×3 (02:55→17:35)
[2020-04-16] MEDS: METOCLOPRAMIDE HCL INJECTION 10 MG/2 ML VIAL IVPUSH SCH ×3 (06:12→22:20)
[2020-04-16] MEDS: LEVOTHYROXINE NA 112 MCG TABLET (FP) PEG SCH (06:12)
[2020-04-16] MEDS: NOREPINEPHRINE D5W PREMIX 16,000 MCG/500 ML BAG IVPB SCH ×2 (06:12→22:35)
[2020-04-16] MEDS: morphine SULFATE 4 MG/ML VIAL IVPUSH PRN (06:12)
[2020-04-16] MEDS: VASOPRESSIN 40 UNITS in SODIUM CHLORIDE 98 ML IVPB SCH ×2 (06:59→07:00)
[2020-04-16 07:49] LABS: BASO % 0.2 % (0-2.0); HEMATOCRIT 27.6 % (32.4-45.2); LYMPH % 1.8 % (8-40); MCH 30.7 pg (25.7-33.7); MCHC 32.7 g/dl (32.0-36.0); MEAN CELL VOLUME 93.9 fl (80-96); MEAN PLT VOLUME 9.8 fl (7.5-11.1); MONO % 12.3 % (3.8-10.2); NEUT % 85.7 % (42.8-82.8); PLATELET COUNT 193 K/MM3 (134-434); RBC 2.94 M/mm3 (3.60-5.2); RDW 16.1 % (11.6-15.6); WHITE BLOOD COUNT 20.5 K/mm3 (4.0-10.0)
[2020-04-16 08:15] LABS: POTASSIUM 4.4 mmol/L (3.5-5.1)
[2020-04-16 08:25] LABS: ALBUMIN 1.7 g/dl (3.4-5.0); CALCIUM 9.1 mg/dL (8.5-10.1)
[2020-04-16 08:26] LABS: BLOOD UREA NITROGEN 90.9 mg/dL (7-18)
[2020-04-16 08:29] LABS: CREATININE 4.4 mg/dL (0.55-1.3); PHOSPHOROUS 5.2 mg/dL (2.5-4.9)
[2020-04-16 08:30] LABS: BILIRUBIN,TOTAL 0.6 mg/dL (0.2-1); TOT PROT 5.7 g/dl (6.4-8.2)
[2020-04-16] MEDS: ARTIFICIAL TEARS (POLYVINYL ALCOHOL) OPTH DROPS OU SCH ×3 (10:15→22:26)
[2020-04-16] MEDS ORDERED: PT OWN MED DRAWER 7, Y5N ONE ×3 (10:19→22:12)
[2020-04-16] MEDS: SUCRALFATE 1 GM/10 ML UNIT DOSE CUPS PEG SCH ×2 (10:23→22:19)
[2020-04-16] MEDS: MULTIVIT-MINERALS ORAL LIQUID GT SCH (10:23)
[2020-04-16] MEDS: LACTOBACILLUS ACIDOPHILUS 1 TABLET GT SCH (10:23)
[2020-04-16] MEDS: ESCITALOPRAM OXALATE 5 MG/5 ML GT SCH (10:24)
[2020-04-16] MEDS: FERROUS SO4 300 MG/5 ML ORAL SOLN UNIT DOSE CUPS GT SCH (10:24)
[2020-04-16] MEDS: NYSTATIN 100000 UNIT/GM TOPICAL OINTMENT 15 GM TUBE TP SCH ×2 (10:25→22:19)
[2020-04-16] MEDS: SIMETHICONE 40 MG/0.6 ML BOTTLE GT SCH ×4 (10:26→22:19)
[2020-04-16] MEDS: FAMOTIDINE 40 MG/5 ML ORAL SUSPENSION PEG SCH (10:26)
[2020-04-16] MEDS: MIDODRINE HCL 5 MG TABLET PO SCH ×3 (10:27→17:36)
[2020-04-16] MEDS: PANTOPRAZOLE SODIUM 40 MG VIAL IVPUSH SCH ×2 (10:27→22:20)
[2020-04-16] MEDS: ASCORBIC ACID 500 MG/5 ML UNIT DOSE CUP GT SCH ×2 (10:27→22:20)
[2020-04-16 10:52] LABS: ANISOCYTOSIS 1+; MACROCYTOSIS 1+; PLATELET ESTIMATE NORMAL
[2020-04-16] MEDS: DOPAMINE 400 MG/D5W - 400,000 MCG/250 ML INFUS.BAG IVPB SCH (13:19)
[2020-04-16] MEDS: ALBUTEROL SO4 2.5/IPRATROPIUM 0.5 INH SOL 3 ML VIAL.NEB. NEB SCH ×2 (17:02→20:45)
[2020-04-16] MEDS: ATORVASTATIN CA 40 MG TABLET (FP) GT SCH (22:19)
[2020-04-17] MEDS: WATER IVPB SCH ×2 (02:55→10:43)
[2020-04-17] MEDS: DEXTROSE 5% IVPB SCH ×2 (02:55→10:43)
[2020-04-17] MEDS: CEFTOLOZANE IVPB SCH ×2 (02:55→10:43)
[2020-04-17] MEDS: TAZOBACTAM IVPB SCH ×2 (02:55→10:43)
[2020-04-17] MEDS: METOCLOPRAMIDE HCL INJECTION 10 MG/2 ML VIAL IVPUSH SCH ×2 (06:25→13:50)
[2020-04-17] MEDS: LEVOTHYROXINE NA 112 MCG TABLET (FP) PEG SCH (06:26)
[2020-04-17] MEDS ORDERED: VASOPRESSIN 20 UNITS/ML VIAL IV ONE (07:10)
[2020-04-17] MEDS ORDERED: VASOPRESSIN 40 UNITS in SODIUM CHLORIDE 98 ML IVPB SCH (07:15)
[2020-04-17 07:23] LABS: BASO % 0.5 % (0-2.0); EOS % 0.1 % (0-4.5); HEMATOCRIT 24.9 % (32.4-45.2); LYMPH % 1.8 % (8-40); MCH 30.3 pg (25.7-33.7); MCHC 32.1 g/dl (32.0-36.0); MEAN CELL VOLUME 94.6 fl (80-96); MEAN PLT VOLUME 9.8 fl (7.5-11.1); MONO % 12.1 % (3.8-10.2); NEUT % 85.5 % (42.8-82.8); PLATELET COUNT 164 K/MM3 (134-434); RBC 2.63 M/mm3 (3.60-5.2); RDW 16.1 % (11.6-15.6); WHITE BLOOD COUNT 23.3 K/mm3 (4.0-10.0)
[2020-04-17 07:30] LABS: INR 1.61 (0.83-1.09); PROTHROMBIN TIME (PATIENT) 19.5 SEC (9.7-13.0)
[2020-04-17 07:31] LABS: ACTIVATED PTT 48.8 SECONDS (25.2-36.5); POTASSIUM 4.3 mmol/L (3.5-5.1)
[2020-04-17 07:35] LABS: ALBUMIN 1.6 g/dl (3.4-5.0); CALCIUM 9.4 mg/dL (8.5-10.1)
[2020-04-17 07:36] LABS: BLOOD UREA NITROGEN 100.6 mg/dL (7-18); MAGNESIUM 2.1 mg/dL (1.8-2.4)
[2020-04-17 07:38] LABS: CREATININE 4.8 mg/dL (0.55-1.3); PHOSPHOROUS 5.2 mg/dL (2.5-4.9)
[2020-04-17 07:40] LABS: BILIRUBIN,TOTAL 0.6 mg/dL (0.2-1); TOT PROT 5.2 g/dl (6.4-8.2)
[2020-04-17 08:47] LABS: ANISOCYTOSIS 1+; MACROCYTOSIS 0; PLATELET ESTIMATE NORMAL
[2020-04-17 09:05] VITALS: TEMP 96
[2020-04-17] MEDS ORDERED: PT OWN MED DRAWER 7, Y5N ONE (10:37)
[2020-04-17] MEDS: FERROUS SO4 300 MG/5 ML ORAL SOLN UNIT DOSE CUPS GT SCH (10:42)
[2020-04-17] MEDS: ARTIFICIAL TEARS (POLYVINYL ALCOHOL) OPTH DROPS OU SCH (10:42)
[2020-04-17] MEDS: LACTOBACILLUS ACIDOPHILUS 1 TABLET GT SCH (10:42)
[2020-04-17] MEDS: SUCRALFATE 1 GM/10 ML UNIT DOSE CUPS PEG SCH (10:42)
[2020-04-17] MEDS: PANTOPRAZOLE SODIUM 40 MG VIAL IVPUSH SCH (10:43)
[2020-04-17] MEDS: ESCITALOPRAM OXALATE 5 MG/5 ML GT SCH (10:43)
[2020-04-17] MEDS: ASCORBIC ACID 500 MG/5 ML UNIT DOSE CUP GT SCH (10:43)
[2020-04-17] MEDS: MIDODRINE HCL 5 MG TABLET PO SCH ×3 (10:43→15:07)
[2020-04-17] MEDS: MULTIVIT-MINERALS ORAL LIQUID GT SCH (10:43)
[2020-04-17] MEDS: NYSTATIN 100000 UNIT/GM TOPICAL OINTMENT 15 GM TUBE TP SCH (10:44)
[2020-04-17] MEDS: SIMETHICONE 40 MG/0.6 ML BOTTLE GT SCH ×2 (10:44→13:50)
[2020-04-17] MEDS: FAMOTIDINE 40 MG/5 ML ORAL SUSPENSION PEG SCH (10:45)
[2020-04-17] MEDS ORDERED: morphine SULFATE 4 MG/ML VIAL IVPUSH ONE (14:46)
[2020-04-17] MEDS ORDERED: MORPHINE SULFATE/0.9% NACL/PF 100 MG/100 ML BAG IVPB SCH (15:00)
[2020-04-17] MEDS: DOPAMINE 400 MG/D5W - 400,000 MCG/250 ML INFUS.BAG IVPB SCH (15:07)
[2020-04-17 16:08] VITALS: BP 45/24; PULSE 103
== END 2020-04-17 17:00 | disposition expired | DRG 207 ==
LOC: JER 15:41 → JERBED 16:03 → J5S 03-23 18:51 → JICU 04-12 03:17
PROVIDERS: ADMIT Internal Medicine; ATTEND Family Medicine
PROC: 5A1955Z Respiratory Ventilation, Greater than 96 Consecutive Hours (ICD-10-PCS; principal; 2020-03-22)
PROC: 30233N1 Transfusion of Nonautologous Red Blood Cells into Peripheral Vein, Percutaneous Approach (ICD-10-PCS; 2020-03-22)
PROC: 0DJ08ZZ Inspection of Upper Intestinal Tract, Via Natural or Artificial Opening Endoscopic (ICD-10-PCS; 2020-03-28)
PROC: 0D20XUZ Change Feeding Device in Upper Intestinal Tract, External Approach (ICD-10-PCS; 2020-04-06)
PROC: 05HC33Z Insertion of Infusion Device into Left Basilic Vein, Percutaneous Approach (ICD-10-PCS; 2020-04-08)
PROC: 05HM33Z Insertion of Infusion Device into Right Internal Jugular Vein, Percutaneous Approach (ICD-10-PCS; 2020-04-12)
PROC: B543ZZA Ultrasonography of Right Jugular Veins, Guidance (ICD-10-PCS; 2020-04-12)
PROC: 30233R1 Transfusion of Nonautologous Platelets into Peripheral Vein, Percutaneous Approach (ICD-10-PCS; 2020-04-15)
DX: J15.1 Pneumonia due to Pseudomonas (principal); R53.2 Functional quadriplegia; A41.9 Sepsis, unspecified organism; R65.21 Severe sepsis with septic shock; K92.2 Gastrointestinal hemorrhage, unspecified; J96.12 Chronic respiratory failure with hypercapnia; R64 Cachexia; E46 Unspecified protein-calorie malnutrition; Z68.1 Body mass index [BMI] 19.9 or less, adult; I50.22 Chronic systolic (congestive) heart failure; N17.9 Acute kidney failure, unspecified; D62 Acute posthemorrhagic anemia; E87.1 Hypo-osmolality and hyponatremia; R18.8 Other ascites; K56.7 Ileus, unspecified; I48.91 Unspecified atrial fibrillation; I25.10 Atherosclerotic heart disease of native coronary artery without angina pectoris; I10 Essential (primary) hypertension; J44.9 Chronic obstructive pulmonary disease, unspecified; Z93.1 Gastrostomy status; Z93.0 Tracheostomy status; D72.829 Elevated white blood cell count, unspecified; I95.9 Hypotension, unspecified; K29.70 Gastritis, unspecified, without bleeding; E03.9 Hypothyroidism, unspecified; E78.5 Hyperlipidemia, unspecified; E87.70 Fluid overload, unspecified; R31.0 Gross hematuria; K21.9 Gastro-esophageal reflux disease without esophagitis; R19.7 Diarrhea, unspecified; K31.84 Gastroparesis; Z88.0 Allergy status to penicillin
CPT/HCPCS: 36415; 36430; 36600; 71045-TC-FY; 74018-TC-FY; 74177-TC; 74190-TC-FY; 80048; 80053; 81003; 82272; 82533; 82550; 82565; 82728; 82803; 82962; 83010; 83036; 83605; 83615; 83690; 83735; 83880; 83930; 83935; 84100; 84300; 84439; 84443; 84484; 84540; 84550; 85025; 85379; 85384; 85610; 85730; 86695; 86696; 86850; 86870; 86900; 86901; 86902; 86922; 87040; 87070; 87086; 87184; 87186; 87205; 87324; 87340; 87389; 87449; 87522; 87899; 90670; 93005; 93010; 93931; 93971; 94002; 94640; 99285-25; C9803; G0480; J0131; J0695; J1439; J2597; P9034; P9058; Q9967; U0003